=== PATIENT | female | born 1990 | race Caucasian/White ===

== ENCOUNTER 2018-03-06 08:58 | Emergency (ER) | payer OTHER, MEDICAID, SELFPAY ==
--- NOTE | 2018-03-06 09:03 | DI.RAD.S_ITS ---
PROCEDURE: XR KNEE LT 3V INDICATIONS: fall heard a popping TECHNIQUE: 3 views of the knee were acquired. COMPARISON: None. FINDINGS: Bones: No fractures or dislocations. No suspicious bony lesions. No patella subluxation is seen. Soft tissues: No joint effusion. No suspicious soft tissue calcifications. IMPRESSION: No acute left knee fracture or dislocation. Dictated by: William Benson M.D. on 03/06/2018 at 9:55 Approved by: William Benson M.D. on 03/06/2018 at 9:55
[2018-03-06 09:04] VITALS: BP 158/100; PULSE 87; RESP 20; TEMP 36.5; O2SAT 97; BMI 45.7
--- NOTE | 2018-03-06 09:05 | ED.LOWEXIN ---
HPI - Extremity Injury (Lower) General Chief Complaint: Extremity Injury, Lower Stated Complaint: L knee pop, numb and tingling Time Seen by Provider: 03/06/18 09:02 Source: patient and EMS Mode of arrival: EMS History of Present Illness HPI Narrative: Patient is a 27-year-old female who presents with left knee pain. She states she got up in the bathroom she felt her knee give out she fell to the floor she heard a pop before she fell and then again when she fell. She thinks it popped out and popped back in. She has no numbness or tingling. She has no thigh pain no hip pain. She sometimes is sharp shooting pain down to her foot. She is unable to weightbear. MD complaint: knee injury Related Data Previous Rx's Medication Instructions Recorded labetalol 100 mg PO BID #60 tab 07/12/17 norethindrone (contraceptive) 0.35 mg PO QDAY #3 pac 07/12/17 [Ortho Micronor] Allergies Allergy/AdvReac Type Severity Reaction Status Date / Time No Known Drug Allergies Allergy Verified 03/06/18 09:13 Review of Systems Review of Systems GENERAL: Denies chills,fever HEENT: Denies throat pain RESPIRATORY: Denies dyspnea, cough, wheezing CARDIOVASCULAR: Denies chest pain, palpitations GASTROINTESTINAL: Denies nausea, vomiting MUSCULOSKELETAL: See HPI SKIN: No rash, no laceration, no pruritus NEUROLOGIC: Denies weakness, dizziness, headache, numbness 8 point review of systems is negative except for those stated above and HPI PFSH Surgical History Status post delivery (05/10/17) Social History Smoking Status: Never smoker Exam Initial Vital Signs Initial Vital Signs: Vital Signs Temperature 97.7 F 03/06/18 09:04 Pulse Rate 87 03/06/18 09:04 Respiratory Rate 20 03/06/18 09:04 Blood Pressure 158/100 H 03/06/18 09:04 Pulse Oximetry 97 03/06/18 09:04 Const General: cooperative Nutritional Appearance: overweight Orientation: alert, awake and oriented x3 Neck Neck: normal visual inspection and full ROM Chest Chest: normal inspection of the chest and normal palpation of entire chest wall Resp Effort & Inspection: normal respiratory effort and able to speak in complete sentences Cardio Pulses: normal peripheral pulses Skin General: no rashes or lesions noted and elasticity normal Neuro General: alert, awake and oriented x3 Extrem Right lower extremity: hip/thigh Details: normal to inspection; no tenderness, no swelling and ROM abnormal and knee Details: tenderness Location: of the patella and of the medial joint line and knee ligament exam normal Left lower extremity: hip/thigh Details: normal to inspection and normal ROM; no tenderness, no swelling and no ecchymosis Course Orders Ordered: ED Orders 03/06/18 09:03 XR knee LT 3V Stat Vital Signs - 8 hr 03/06/18 09:04 03/06/18 09:10 Temperature 97.7 F Pulse Rate 87 Respiratory Rate 20 Blood Pressure 158/100 H Blood Pressure [Left Arm] 154/94 H Pulse Oximetry 97 MDM - Extremity Injury (Lower) Imaging Data XR left knee: Attestation: I personally reviewed and interpreted this imaging study as follows: My impression: negative Radiologist's impression: PROCEDURE: XR KNEE LT 3V INDICATIONS: fall heard a popping TECHNIQUE: 3 views of the knee were acquired. COMPARISON: None. FINDINGS: Bones: No fractures or dislocations. No suspicious bony lesions. No patella subluxation is seen. Soft tissues: No joint effusion. No suspicious soft tissue calcifications. IMPRESSION: No acute left knee fracture or dislocation. Dictated by: William Benson M.D. on 03/06/2018 at 9:55 Discharge Plan Departure Patient Disposition: Home Clinical Impression: Left knee sprain Instructions: DI for Knee Sprain Activity Restrictions/Additional Instructions: *You have been diagnosed with left knee sprain *What to do: Wear brace while active, elevate, ice as needed if still having pain it in a couple of weeks he may require an MRI by L&I doctor or your PCP *Continue to take medications as directed Motrin 100 mg every 8 hr if needed for pain *Follow up with your primary care provider in 2-3 days *Return to ER if you should have increasing weakness, numbness or any new, worsening or concerning symptoms Prescriptions: No Action labetalol 100 MG tablet 100 mg PO BID Qty: 60 RF: 2 norethindrone (contraceptive) [Ortho Micronor] 0.35 MG tablet 0.35 mg PO QDAY Qty: 3 RF: 3 Stand Alone Forms: Work Release Note
[2018-03-06 09:10] VITALS: BP 154/94
[2018-03-06 10:08] VITALS: BP 147/89; PULSE 77; RESP 18; O2SAT 97
== END 2018-03-06 10:09 | disposition home or self-care (01) ==
PROVIDERS: Emergency Provider Emergency Medicine; PCP Family Medicine
DX: S83.92XA Sprain of unspecified site of left knee, initial encounter (principal); W18.30XA Fall on same level, unspecified, initial encounter
CPT/HCPCS: 73562; 99283

== ENCOUNTER → 2019-11-09 14:12 | Outpatient (CLI) | payer OTHER, SELFPAY ==
[2019-11-10 18:36] LABS: COVID19 Sendout Not Detected (Not Detected)
== END ==
PROVIDERS: PCP Family Medicine; Visit Provider Physician Assistant
DX: Z11.59 Encounter for screening for other viral diseases (principal)
CPT/HCPCS: 87635

== ENCOUNTER → 2020-06-25 17:17 | Outpatient (CLI) | payer OTHER, SELFPAY ==
--- NOTE | 2020-06-25 17:20 | DI.RAD.S_ITS ---
PROCEDURE: XR HAND LT MIN 3V INDICATIONS: Left hand discomfort status post repair TECHNIQUE: 3 views of the hand(s) acquired. COMPARISON: [facility], , HAND 3V LEFT, 05/15/2006, 13:48. FINDINGS: Bones: Plate and screw fixation of the 3rd metacarpal. There is expected alignment. Hardware appears intact. Soft tissues: No suspicious soft tissue calcifications. IMPRESSION: Expected postoperative alignment. Dictated by: Hugo Tucker M.D. on 06/26/2020 at 10:15 Approved by: Hugo Tucker M.D. on 06/26/2020 at 10:29
--- NOTE | 2020-06-25 17:20 | DI.RAD.S_ITS ---
PROCEDURE: XR KNEE LT 3V INDICATIONS: Left knee pain TECHNIQUE: 3 views of the knee were acquired. COMPARISON: [facility], , XR KNEE LT 3V, 03/06/2018, 9:07. FINDINGS: Bones: No fracture. Anatomic alignment. Mild narrowing of the patellofemoral joint space. There is a 2 mm density projecting at the lateral aspect of the patellofemoral joint space raising possibility of small loose body although technically indeterminate. Soft tissues: No joint effusion. No suspicious soft tissue calcifications. IMPRESSION: Mild degenerative changes as above. No definite interval progression since 03/06/18. If the patient's pain or other symptoms persist, consider further evaluation with MRI Dictated by: Hugo Tucker M.D. on 06/26/2020 at 9:33 Approved by: Hugo Tucker M.D. on 06/26/2020 at 9:36
[2020-06-25 18:39] LABS: Add Manual Diff / Slide Review NO; Basophils Absolute Auto 100 /uL (0-100); Basophils Percent Auto 0.5 % (0-2); Eosinophils Absolute Auto 200 /uL (0-450); Eosinophils Percent Auto 1.8 % (2-4); Hematocrit 44.8 % (36-46); Hemoglobin 14.7 g/dL (12.0-16.0); Lymphocytes Absolute Auto 3800 /uL (1100-4500); Lymphocytes Percent Auto 28.9 % (25-40); Mean Corpuscular HGB Conc 32.7 % (30-36); Mean Corpuscular Hemoglobin 27.7 PG (26-34); Mean Corpuscular Volume 84.6 fL (80-100); Monocytes Absolute Auto 600 /uL (0-900); Monocytes Percent Auto 4.9 % (3-14); Neutrophils Absolute Auto 8300 /uL (1500-7000); Neutrophils Percent Auto 63.9 % (50-75); Platelet Count 315 X10^3/uL (150-400); Red Blood Cell Count 5.29 X10^6/uL (4.0-5.2); Red Cell Distribution Width 14.8 % (11.6-14.8)
[2020-06-25 18:52] LABS: Hemoglobin A1C% w Est Avg Glu 5.4 % (4.0-6.0)
[2020-06-25 18:55] LABS: Alanine Aminotransferase 42 IU/L (<35); Albumin 4.6 g/dL (3.5-5.0); Albumin Globulin Ratio 1.4 (1.0-2.8); Alkaline Phosphatase 68 U/L (38-126); Aspartate Aminotransferase 39 IU/L (14-36); Bilirubin Total 0.2 mg/dL (0.2-1.3); Blood Urea Nitrogen 13 mg/dL (7-17); Calcium 9.9 mg/dL (8.4-10.2); Carbon Dioxide 26 mmol/L (22-32); Chloride 103 mmol/L (98-107); Estimated Glomerular Filt Rate > 60.0 mL/min (>60); Globulin 3.3 g/dL (1.7-4.1); Glucose 101 mg/dL (70-100); HEMOLYSIS 19 (0-50); Potassium 3.9 mmol/L (3.4-5.1); Sodium 141 mmol/L (137-145); Total Protein 7.9 g/dL (6.3-8.2)
[2020-06-25 19:27] LABS: TSH w/ Reflex to FT4 1.44 uIU/mL (0.47-4.68)
== END ==
PROVIDERS: PCP Family Medicine; Referring Provider Family Medicine; Visit Provider Family Medicine
DX: E66.9 Obesity, unspecified (principal); M25.562 Pain in left knee; M79.642 Pain in left hand; Z30.9 Encounter for contraceptive management, unspecified
CPT/HCPCS: 36415; 73130; 73562; 80053; 83036; 84443; 85025

== ENCOUNTER → 2020-12-14 10:47 | Outpatient (CLI) | payer OTHER, SELFPAY ==
[2020-12-14 11:55] LABS: Add Manual Diff / Slide Review NO; Basophils Absolute Auto 100 /uL (0-100); Basophils Percent Auto 0.5 % (0-2); Eosinophils Absolute Auto 300 /uL (0-450); Eosinophils Percent Auto 2.7 % (2-4); Hematocrit 44.1 % (36-46); Hemoglobin 14.5 g/dL (12.0-16.0); Lymphocytes Absolute Auto 3000 /uL (1100-4500); Lymphocytes Percent Auto 30.5 % (25-40); Mean Corpuscular HGB Conc 32.8 % (30-36); Mean Corpuscular Hemoglobin 27.3 PG (26-34); Mean Corpuscular Volume 83.3 fL (80-100); Monocytes Absolute Auto 500 /uL (0-900); Monocytes Percent Auto 5.5 % (3-14); Neutrophils Absolute Auto 6100 /uL (1500-7000); Neutrophils Percent Auto 60.8 % (50-75); Platelet Count 279 X10^3/uL (150-400); Red Blood Cell Count 5.29 X10^6/uL (4.0-5.2); Red Cell Distribution Width 14.4 % (11.6-14.8)
[2020-12-14 12:03] LABS: Alanine Aminotransferase 33 IU/L (<35); Albumin 4.4 g/dL (3.5-5.0); Albumin Globulin Ratio 1.6 (1.0-2.8); Alkaline Phosphatase 67 U/L (38-126); Aspartate Aminotransferase 30 IU/L (14-36); BUN Creatinine Ratio 21.1 (6-22); Bilirubin Total 0.4 mg/dL (0.2-1.3); Blood Urea Nitrogen 15 mg/dL (7-17); Calcium 9.6 mg/dL (8.4-10.2); Carbon Dioxide 25 mmol/L (22-32); Chloride 106 mmol/L (98-107); Estimated Glomerular Filt Rate > 60.0 mL/min (>60); Globulin 2.8 g/dL (1.7-4.1); Glucose 92 mg/dL (70-100); HEMOLYSIS < 15 (0-50); Hemoglobin A1C% w Est Avg Glu 5.5 % (4.0-6.0); Potassium 4.4 mmol/L (3.4-5.1); Sodium 138 mmol/L (137-145); Total Protein 7.2 g/dL (6.3-8.2)
== END ==
PROVIDERS: PCP Family Medicine; Referring Provider Family Medicine; Visit Provider Family Medicine
DX: R73.9 Hyperglycemia, unspecified (principal)
CPT/HCPCS: 36415; 80053; 83036; 85025

== ENCOUNTER 2021-03-02 07:04 | Observation (INO) | payer OTHER, SELFPAY ==
[2021-03-02] VITALS (12 sets, daily range): BP systolic 149–184; BP diastolic 79–108; PULSE 85–115; RESP 16–98; TEMP 35.8–37.1; O2SAT 97–99; BMI 49.4
--- NOTE | 2021-03-02 07:42 | DI.CT.S_ITS ---
PROCEDURE: CT KIDNEY URETER BLADDER (KUB) INDICATIONS: Right flank pain. Hematuria. TECHNIQUE: Axial sections were acquired from the lung bases to the pubic symphysis. Coronal and sagittal reformats were performed. For radiation dose reduction, the following was used: automated exposure control, adjustment of mA and/or kV according to patient size. COMPARISON: None. FINDINGS: Image quality: Excellent. Lung bases: Unremarkable. Heart: No significant findings. URINARY: No left nephrolithiasis or hydronephrosis. Mild right renal enlargement. Mild right hydronephrosis. There is a right ureteropelvic junction calculus measuring 10 mm and 690 Hounsfield units. Bladder: Urinary bladder is decompressed. ABDOMEN: Liver: There is a well-circumscribed 32 mm diameter focus of fat density within the right hepatic dome with a thin surrounding calcific rim. Gallbladder: Unremarkable. Biliary ducts: Unremarkable. Pancreas: Unremarkable. Spleen: Unremarkable. Adrenal Glands: Unremarkable. Stomach and Bowel: Stomach, small bowel loops, and colon are unremarkable. Normal appendix Peritoneum: No abnormal intraperitoneal fluid. No free air. Ventral Wall: No hernia. Abdominal Nodes: No enlarged retroperitoneal or mesenteric lymph nodes. Vessels: Aorta and inferior vena cava are normal in size. PELVIS: Pelvic Organs: Unremarkable. Pelvic Nodes: Unremarkable. Miscellaneous: No inguinal hernias are seen. Bones: Unremarkable. IMPRESSION: 1. Right ureteropelvic junction calculus associated with mild hydronephrosis. 2. Normal appendix. 3. Indeterminate fat containing right hepatic lobe mass. Initial further assessment with nonemergent outpatient follow-up liver protocol MRI is recommended. Dictated by: Jose Alberto Calzada M.D. on 03/02/2021 at 7:31 Approved by: Jose Alberto Calzada M.D. on 03/02/2021 at 7:33
[2021-03-02] MEDS: SODIUM CHLORIDE 0.9% 1,000 ML 250 ML IV (07:48)
[2021-03-02] MEDS: ONDANSETRON 4 MG/2 ML INJ IV (07:48)
[2021-03-02] MEDS: KETOROLAC 30 MG/ML VIAL IV (07:48)
[2021-03-02 07:51] LABS: Add Manual Diff / Slide Review NO; Basophils Absolute Auto 100 /uL (0-100); Basophils Percent Auto 0.8 % (0-2); Eosinophils Absolute Auto 300 /uL (0-450); Eosinophils Percent Auto 2.5 % (2-4); Hematocrit 41.6 % (36-46); Lymphocytes Absolute Auto 3600 /uL (1100-4500); Lymphocytes Percent Auto 30.8 % (25-40); Mean Corpuscular HGB Conc 33.7 % (30-36); Mean Corpuscular Hemoglobin 27.1 PG (26-34); Mean Corpuscular Volume 80.6 fL (80-100); Monocytes Absolute Auto 500 /uL (0-900); Monocytes Percent Auto 4.8 % (3-14); Neutrophils Absolute Auto 7100 /uL (1500-7000); Neutrophils Percent Auto 61.1 % (50-75); Platelet Count 343 X10^3/uL (150-400); Red Blood Cell Count 5.16 X10^6/uL (4.0-5.2); Red Cell Distribution Width 14.6 % (11.6-14.8); White Blood Cell Count 11.6 X10^3/uL (4.5-11.0)
--- NOTE | 2021-03-02 08:00 | ED.FEMALEGU ---
HPI - Female Genitourinary General Chief complaint: Urogenital-Female Stated complaint: Sharp pain in lower rt side of back Time Seen by Provider: 03/02/21 07:23 Source: patient Mode of arrival: Ambulatory History of Present Illness HPI Narrative: The patient developed mild dysuria about 1 week ago. She developed cloudy urine. She utilized a telemedicine service and was prescribed Keflex for UTI for 5 days Symptoms resolved. She has finished the antibiotic. This morning she woke with sharp pain in the right mid back. She explains that the pain feels deep in does not radiate. She has no pain with motion in her back. She has no recent injury to the back. Pain does not radiate to the abdomen or pelvis. She experiences no dysuria or hematuria. She has no fever or chills. She has no nausea, vomiting or diarrhea. She is finishing her menstrual cycle, is unlikely. She has no vaginal discharge. She has no history of kidney stones. She recently had cough and congestion, all respiratory symptoms have cleared. She denies fever or chills. Related Data Previous Rx's Medication Instructions Recorded naproxen 500 mg tablet 500 mg PO BID #60 tab 06/25/20 norgestimate-ethinyl estradiol 1 tab PO DAILY #84 tab 11/06/20 0.18 mg/0.215mg/0.25mg-35 mcg(28)tablet (Ortho Tri-Cyclen (28)) hydrocodone 5 mg-acetaminophen 325 1 tab PO Q4-6H PRN #20 tab 03/02/21 mg tablet ondansetron 4 mg disintegrating 4 mg PO Q4-6H PRN #20 tab 03/02/21 tablet Allergies Allergy/AdvReac Type Severity Reaction Status Date / Time No Known Drug Allergies Allergy Verified 01/06/21 16:53 Review of Systems Review of Systems ROS Unobtainable: All systems reviewed & are unremarkable except as noted in HPI and below Patient History Medical History (Updated 03/02/21 @ 11:54 by Olu Foster MD) Chicken pox (~1998) Contraceptive management Gastroesophageal reflux disease GERD (gastroesophageal reflux disease) Human papilloma virus (~2013) Hyperglycemia Left hand pain Left knee pain Leukocytosis Leukocytosis Obesity Ovarian cyst (~2012) Renal colic on right side Renal colic on right side Urinary tract infection Surgical History Anesthesia History of hand surgery (~2006) S/P foot surgery, left (~2003) S/P removal of left ovary (~2012) Status post delivery (05/10/17) Status post primary low transverse section Family History Father Hypertension Mother Hypertension Grandfather Cancer Grandfather Cancer Grandmother Cancer alcohol intake frequency: 0-2 drinks per day Substance Use Type: does not use Exam Initial Vital Signs Initial Vital Signs: Vital Signs Temperature 98.1 F 03/02/21 07:17 Pulse Rate 103 H 03/02/21 07:17 Respiratory Rate 18 03/02/21 07:17 Blood Pressure 184/108 H 03/02/21 07:17 Pulse Oximetry 99 03/02/21 07:17 Const General: cooperative and other (She appears uncomfortable but not toxic.) HENMT Head: normocephalic and atraumatic Resp Auscultation: clear to auscultation bilaterally Cardio Rate: regular rate Rhythm: regular rhythm Heart Sounds: S1 normal, S2 normal, no click and no murmurs GI Inspection: obesity Palpation: soft, No mass and No tender Back/Spine/Pelvis Back: CVA tenderness right Skin General: no rashes or lesions noted Neuro General: patient alert, patient awake, patient oriented x3 and no focal motor deficits Extrem General: normal to inspection Psych Mental Status: mental status grossly normal Course Course Course Narrative: The patient initially received Toradol and Zofran for pain and nausea. She has an obstructing 10 mm right UPJ calculus. She was also given Dilaudid. Dr. Foster, urology, has been consulted, he will see hurt today to place a right ureter stent. Orders Ordered: ED Orders 03/02/21 07:41 Complete Blood Count AUTO DIFF Stat Comprehensive Metabolic Panel Stat 03/02/21 07:42 CT kidney ureter bladder (KUB) Stat Hydrocodone Bitart/Acetaminophen (Hydrocodone/Acet 5/325 Tablet) 1 tab PO PACUNOW PRN PRN Reason: Mild or moderate pain Fentanyl (Fentanyl 100 Mcg/2 Ml Inj) 0 mcg IV Q5M PRN PRN Reason: Pain, Moderate (4-6) Hydromorphone HCl (Hydromorphone 2 Mg Inj) 0 mg IV Q5M PRN PRN Reason: Pain, Severe (7-10) Sodium Chloride (Normal Saline 0.9%) 1,000 mls @ 250 mls/hr IV CONT KARRIE Last Infusion: 03/02/21 09:22 Dose: 0 mls/hr Documented by: Admin: 03/02/21 07:48 Dose: 250 mls/hr Documented by: CHIARA Lactated Ringer's (Lactated Ringers) 1,000 mls @ 42 mls/hr IV CONT KARRIE Lactated Ringer's (Lactated Ringers) 500 mls @ 25 mls/hr IV CONT KARRIE Ciprofloxacin (Cipro) 400 mg in 200 mls @ 200 mls/hr IV NOW ONE Stop: 03/02/21 12:59 Lorazepam (Lorazepam 2 Mg/Ml Inj) 0.5 mg IV NOW PRN PRN Reason: Anxiety Metoclopramide HCl (Metoclopramide 10 Mg/2 Ml Inj) 10 mg IV NOW PRN PRN Reason: Nausea And Vomiting Ondansetron HCl (Ondansetron 4 Mg/2 Ml Inj) 4 mg IV NOW PRN PRN Reason: Nausea And Vomiting Discontinued Medications Hydromorphone HCl (Hydromorphone 1 Mg Inj) 1 mg IV NOW ONE Stop: 03/02/21 09:13 Last Admin: 03/02/21 09:17 Dose: 1 mg Documented by: CHIARA Ketorolac Tromethamine (Ketorolac 30 Mg/Ml Vial) 30 mg IV NOW ONE Stop: 03/02/21 07:43 Last Admin: 03/02/21 07:48 Dose: 30 mg Documented by: CHIARA Ondansetron HCl (Ondansetron 4 Mg/2 Ml Inj) 4 mg IV NOW ONE Stop: 03/02/21 07:41 Last Admin: 03/02/21 07:48 Dose: 4 mg Documented by: CHIARA Vital Signs Vital signs: Vital Signs - 8 hr 03/02/21 07:17 Temperature 98.1 F Pulse Rate 103 H Respiratory Rate 18 Blood Pressure 184/108 H Pulse Oximetry 99 MDM - Female Genitourinary Lab Data Result diagrams: 03/02/21 07:41 03/02/21 07:41 Labs: Lab Results 03/02/21 03/02/21 03/02/21 Range/Units 07:41 07:41 10:50 WBC 11.6 H (4.5-11.0) X10^3/uL RBC 5.16 (4.0-5.2) X10^6/uL Hgb 14.0 (12.0-16.0) g/dL Hct 41.6 (36-46) % MCV 80.6 (80-100) fL MCH 27.1 (26-34) PG MCHC 33.7 (30-36) % RDW 14.6 (11.6-14.8) % Plt Count 343 (150-400) X10^3/uL Neut % (Auto) 61.1 (50-75) % Lymph % (Auto) 30.8 (25-40) % Antelope % (Auto) 4.8 (3-14) % Eos % (Auto) 2.5 (2-4) % Baso % (Auto) 0.8 (0-2) % Neut # (Auto) 7100 H (0276-1225) /uL Lymph # (Auto) 3600 (7820-4557) /uL Antelope # (Auto) 500 (0-900) /uL Eos # (Auto) 300 (0-450) /uL Baso # (Auto) 100 (0-100) /uL Sodium 141 (137-145) mmol/L Potassium 4.0 (3.4-5.1) mmol/L Chloride 106 (98-107) mmol/L Carbon Dioxide 28 (22-32) mmol/L BUN 13 (7-17) mg/dL Creatinine 0.87 (0.52-1.04) mg/dL Estimated GFR > 60.0 (>60) mL/min BUN/Creatinine Ratio 14.9 (6-22) Glucose 109 H (70-100) mg/dL Calcium 9.8 (8.4-10.2) mg/dL Total Bilirubin 0.5 (0.2-1.3) mg/dL AST 34 (14-36) IU/L ALT 38 H (<35) IU/L Alkaline Phosphatase 66 (38-126) U/L Total Protein 7.7 (6.3-8.2) g/dL Albumin 4.5 (3.5-5.0) g/dL Globulin 3.2 (1.7-4.1) g/dL Albumin/Globulin Ratio 1.4 (1.0-2.8) SARS-CoV-2 (PCR) Negative (Negative) Point of Care Testing Test Results Negative Urine Dip Bedside Urine Glucose Negative Bedside Urine Bilirubin - Negative Bedside Urine Ketone - Negative Urine Specific [place] 1.030 Bedside Urine Occult Blood +++ Bedside Urine pH 6.0 Bedside Urine Protein +/- 15 Bedside Urine Urobilinogen 0.2 Bedside Urine Nitrite - Negative Bedside Urine Leukocytes - Negative Esterase Imaging Data CT scan - abdomen/pelvis: Radiologist's Impression: 10 mm right UPJ stone with associated hydronephrosis. Discharge Plan Departure Patient Disposition: Admitted to Surgery Clinical Impression: Renal calculus, right Admit Date/Time: 03/02/21 10:50 Admit Provider: Olu Foster
[2021-03-02 08:06] LABS: Alanine Aminotransferase 38 IU/L (<35); Albumin 4.5 g/dL (3.5-5.0); Albumin Globulin Ratio 1.4 (1.0-2.8); Alkaline Phosphatase 66 U/L (38-126); Aspartate Aminotransferase 34 IU/L (14-36); BUN Creatinine Ratio 14.9 (6-22); Bilirubin Total 0.5 mg/dL (0.2-1.3); Blood Urea Nitrogen 13 mg/dL (7-17); Calcium 9.8 mg/dL (8.4-10.2); Carbon Dioxide 28 mmol/L (22-32); Chloride 106 mmol/L (98-107); Estimated Glomerular Filt Rate > 60.0 mL/min (>60); Globulin 3.2 g/dL (1.7-4.1); Glucose 109 mg/dL (70-100); HEMOLYSIS < 15 (0-50); Sodium 141 mmol/L (137-145); Total Protein 7.7 g/dL (6.3-8.2)
[2021-03-02] MEDS: HYDROMORPHONE 1 MG INJ IV (09:17)
[2021-03-02 11:35] LABS: COVID19 -Nasal RAPID Negative (Negative)
--- NOTE | 2021-03-02 11:46 | P.CONS_ITS ---
History of Present Illness Consult details Date Patient Seen: 03/02/21 Time Patient Seen: 11:46 Chief complaint: Sharp pain in lower rt side of back Reason for consult: Right 10 mm ureteral calculus unremitting colic infected urine Requesting provider: Alber Andres Narrative: This 30-year-old female presented to the emergency department with complaint of sharp right-sided flank pain. Workup has revealed a obstructing 10 mm proximal ureteral calculus. Patient has been poorly responsive to pain control. Is currently on antibiotics for a urinary tract infection. And Dr. Andres requested that we evaluate and assist. The patient has never had a stone before by her report. Father has a history of kidney stones. The pain came on suddenly is sharp in consistent with right ureteral colic she denies fever, chills, nausea, vomiting, sign or symptom of systemic infectious illness. Patient denies gross hematuria. Patient is not , and COVID negative today The infection, size of the stone, unremitting colic the best course of action would be cystoscopy with right stent placement. The procedure, risks, alternatives discussed the patient and her mother. And she wishes to proceed. Risks to include but not limited to bleeding, infection, injury to surrounding structures, need for future procedures, stent discomfort. Patient will be taken to the operating room stent placed and then likely discharged home. Meds Home Medications and Allergies Home Medications Medication Instructions Recorded Confirmed Type naproxen 500 mg tablet 500 mg PO BID #60 tab 06/25/20 01/06/21 Rx norgestimate-ethinyl estradiol 1 tab PO DAILY #84 tab 11/06/20 01/06/21 Rx 0.18 mg/0.215mg/0.25mg-35 mcg(28)tablet (Ortho Tri-Cyclen (28)) hydrocodone 5 mg-acetaminophen 325 1 tab PO Q4-6H PRN #20 tab 03/02/21 Rx mg tablet ondansetron 4 mg disintegrating 4 mg PO Q4-6H PRN #20 tab 03/02/21 Rx tablet Allergies Allergy/AdvReac Type Severity Reaction Status Date / Time No Known Drug Allergies Allergy Verified 01/06/21 16:53 Review of Systems Review of Systems ROS: Yes All systems reviewed with the patient and are negative except as otherwise documented (Problem list) Exam Vital Signs (past 8 hours): - 03/02/21 07:17 03/02/21 11:03 03/02/21 11:04 Temperature 98.1 F 98.7 F Pulse Rate 103 H 85 88 Respiratory Rate 18 Blood Pressure 184/108 H 165/103 H Pulse Oximetry 99 98 97 Oxygen Delivery Method Room Air Narrative Exam Narrative: General: This is an awake, alert, oriented obese female appearing in minimal to moderate distress. Lungs: Clear full and equal Cardiovascular exam: Regular rate and rhythm without murmur Abdominal exam, obese, nontender Back: Right-sided CVA tenderness to percussion. Neurologic exam: Grossly intact Objective Labs Result Diagrams: 03/02/21 07:41 03/02/21 07:41 Labs: Laboratory Results - last 24 hr 03/02/21 03/02/21 03/02/21 07:41 07:41 10:50 WBC 11.6 H RBC 5.16 Hgb 14.0 Hct 41.6 MCV 80.6 MCH 27.1 MCHC 33.7 RDW 14.6 Plt Count 343 Neut % (Auto) 61.1 Lymph % (Auto) 30.8 Callahan % (Auto) 4.8 Eos % (Auto) 2.5 Baso % (Auto) 0.8 Neut # (Auto) 7100 H Lymph # (Auto) 3600 [place]ahan # (Auto) 500 Eos # (Auto) 300 Baso # (Auto) 100 Sodium 141 Potassium 4.0 Chloride 106 Carbon Dioxide 28 BUN 13 Creatinine 0.87 Estimated GFR > 60.0 BUN/Creatinine Ratio 14.9 Glucose 109 H Calcium 9.8 Total Bilirubin 0.5 AST 34 ALT 38 H Alkaline Phosphatase 66 Total Protein 7.7 Albumin 4.5 Globulin 3.2 Albumin/Globulin Ratio 1.4 SARS-CoV-2 (PCR) Negative [facility] Medical History (Updated 03/02/21 @ 11:54 by Olu Foster MD) Chicken pox (~1998) Contraceptive management Gastroesophageal reflux disease GERD (gastroesophageal reflux disease) Human papilloma virus (~2013) Hyperglycemia Left hand pain Left knee pain Leukocytosis Leukocytosis Obesity Ovarian cyst (~2012) Renal colic on right side Renal colic on right side Urinary tract infection Surgical History Anesthesia History of hand surgery (~2006) S/P foot surgery, left (~2003) S/P removal of left ovary (~2012) Status post delivery (05/10/17) Status post primary low transverse section Family History Father Hypertension Mother Hypertension Grandfather Cancer Grandfather Cancer Grandmother Cancer Tobacco & Substance Use Smoking Status: Former smoker alcohol intake: current (social drinker) substance use type: does not use and marijuana (former ) Assessment & Plan Assessment and plan (1) Renal calculus, right: Status: Acute (2) Renal colic on right side: Status: Acute (3) Urinary tract infection: Status: Acute Plan Assessment and plan: Right 10 mm obstructing ureteral calculus with unremitting colic and urinary tract infection. Patient currently is afebrile and not septic. But is failing to respond to pain medications. Plan would be for cystoscopy with right stent placement and then future treatment of her stone. COVID-19 COVID-19 status: Negative Result date/Date tested (Pos, Neg/Pending): 03/02/21 Time Spent With Patient Time with patient: less than 30 minutes Critical Care time: I spent a total of [] minutes of critical care time on this patient's care today; this time is exclusive of procedural time.
--- NOTE | 2021-03-02 11:55 | PM.PREOP ---
Pre-operative Note COVID-19 COVID-19 status: Negative Result date/Date tested (Pos, Neg/Pending): 03/02/21 Interval Note History & Physical reviewed/Exam performed by Physician: Yes Changes to H&P: No
--- NOTE | 2021-03-02 11:57 | SUR.OPER ---
Lithotomy on padded OR bed, head on pillow, arms secured on padded arm boards at <90 degrees abduction. Legs secured in padded yellow fins stirrups.
[2021-03-02] MEDS: LACTATED RINGERS 1,000 ML 42 ML IV (12:10)
[2021-03-02] MEDS: CIPROFLOXACIN 400 MG/200 ML PIGGYBACK 200 MG IV (12:20)
--- NOTE | 2021-03-02 12:45 | P.OP_ITS ---
Procedure & Clinicians Procedure: Cystoscopy with right ureteral stent placement Same procedure as scheduled: Yes Indications: This 30-year-old female presented to the emergency department with complaint of right flank pain urinary tract infection. She was found to have an obstructing 10 mm proximal ureteral stone and was unresponsive to attempt to control her pain. She presents this time for cystoscopy with right stent placement. Surgeon: Olu Foster Click Yes if Unassisted: Yes Anesthesia Type: General Operative Notes Findings: External genitalia normal, urethral meatus normal, urethra normal along its length, ureteral orifices in normal position with clear efflux bilaterally. Bladder mucosa is normal. The stone is noted via fluoroscopy to be in the proximal ureter. No other abnormalities noted the stent was left in good position in the right collecting system via fluoroscopy in the upper collecting system and under direct vision in the bladder. The string was removed. Closure Type: not applicable Specimen(s): none sent Applied: other (Seven Bel[place]ian multi length stent left in the right collecting system with no string) Estimated Blood Loss (mL): 0 Blood products transfused: none Procedure in detail: After informed consent was obtained the patient was identified and brought to the operating room. She was placed in the supine position on the operating room table and anesthesia was induced and maintained. After anesthetic induction and maintenance the placed was in transition to the lithotomy position. The patient was then prepped, draped and prepared for transurethral procedure. After prepping, draping and ensuring an adequate level of anesthesia a 21 Bel[place]ian cystoscope was passed through the urethra into the bladder where cystoscopy was performed. The right ureteral orifice once again identified and a hybrid guidewire passed up and into the collecting system under fluoroscopic visualization. The stent was then passed over the wire in a coaxial fashion up and in the collecting system. The upper portion was position via fluoroscopy. The wire and pusher were removed. The stent remained in good position. The string was then backed out of the scope and the scope reinserted into the bladder grasping forceps was then inserted the stent was grasped and the nylon harness removed. The position of the stent was once again checked and was found to be in good position both in the renal pelvis and bladder. Bladder was drained scope was removed and patient was awakened and taken to the pos tanesthesia care unit having tolerated the procedure well. There were no complications. The patient will be discharged home to follow-up in my office in approximately 7 to 10 days. Complications: none Post-operative Condition: other (Improved) Disposition: PACU Plan for aftercare: Patient will be discharged home to follow up my office in 7-10 days.
[2021-03-02] MEDS: LACTATED RINGERS 500 ML 25 ML IV (13:34)
== END 2021-03-02 13:50 | disposition home or self-care (01) ==
LOC: ED 10:53 → AC 10:56
PROVIDERS: Admitting Provider Urology; Emergency Provider Emergency Medicine; PCP Family Medicine; Referring Provider Emergency Medicine; Visit Provider Urology
PROC: (CPT 52332; principal; 2021-03-02 12:00)
DX: N39.0 Urinary tract infection, site not specified (principal); M54.89 Other dorsalgia; N20.1 Calculus of ureter; Z20.822 Contact with and (suspected) exposure to COVID-19
CPT/HCPCS: 52332; 36415; 74176; 76000; 80053; 81003; 81025; 85025; 87635; 96361; 96374; 96375; 99218; 99284; C9803; G0378; J0744; J1100; J1170; J1885; J2250; J2405; J2704; J3010

== ENCOUNTER → 2021-03-10 09:01 | Outpatient (CLI) | payer OTHER, SELFPAY ==
--- NOTE | 2021-03-10 09:03 | DI.RAD.S_ITS ---
PROCEDURE: XR KUB INDICATIONS: Kidney stone TECHNIQUE: One view of the abdomen acquired. COMPARISON: [facility], CT, CT KIDNEY URETER BLADDER (KUB), 03/02/2021, 7:58. FINDINGS: Surgical changes and devices: There is a right ureteral stent. A 9 mm stone is suspected in the right UPJ area adjacent to the proximal ureteral stent loop. Bowel: Bowel gas pattern is normal. Soft tissues: No suspicious abdominal calcifications. Visualized solid organ contours appear normal in size. Bones: No suspicious bony lesions. IMPRESSION: 1. Right ureteral stent in place. 2. A 9 mm stone is suspected in the right UPJ. Dictated by: Robert Murrieta M.D. on 03/10/2021 at 10:21 Approved by: Robert Murrieta M.D. on 03/10/2021 at 10:23
== END ==
PROVIDERS: PCP Family Medicine; Referring Provider Urology; Visit Provider Urology
DX: N20.1 Calculus of ureter (principal); Z96.0 Presence of urogenital implants
CPT/HCPCS: 74018

== ENCOUNTER → 2021-03-11 09:05 | Outpatient (CLI) | payer OTHER, SELFPAY | PROVIDERS: PCP Family Medicine; Visit Provider Urology | DX: N30.01 Acute cystitis with hematuria (principal); N20.0 Calculus of kidney; N23 Unspecified renal colic; D72.829 Elevated white blood cell count, unspecified | CPT/HCPCS: 81002; 87086 ==

== ENCOUNTER → 2021-03-28 09:13 | Outpatient (CLI) | payer OTHER, SELFPAY | PROVIDERS: PCP Family Medicine; Visit Provider Urology | DX: N30.01 Acute cystitis with hematuria (principal); N20.0 Calculus of kidney | CPT/HCPCS: 81002; 87077; 87086; 87186 ==

== ENCOUNTER → 2021-04-01 09:05 | Outpatient (CLI) | payer OTHER, SELFPAY ==
[2021-04-01 10:04] LABS: COVID19 -Nasal RAPID Negative (Negative)
== END ==
PROVIDERS: PCP Family Medicine; Referring Provider Urology; Visit Provider Urology
DX: Z20.822 Contact with and (suspected) exposure to COVID-19 (principal)
CPT/HCPCS: 87635; C9803

== ENCOUNTER → 2021-04-09 09:14 | Outpatient (CLI) | payer OTHER, SELFPAY | PROVIDERS: PCP Family Medicine; Visit Provider Urology | DX: R30.0 Dysuria (principal); N20.0 Calculus of kidney; B37.3 Candidiasis of vulva and vagina; Z96.0 Presence of urogenital implants; N23 Unspecified renal colic; Z68.42 Body mass index [BMI] 45.0-49.9, adult | CPT/HCPCS: 81002; 87077; 87086; 87185; 87186 ==

== ENCOUNTER → 2021-04-15 15:25 | Outpatient (CLI) | payer OTHER, SELFPAY ==
[2021-04-15 16:41] LABS: COVID19 -Nasal RAPID Negative (Negative)
== END ==
PROVIDERS: PCP Family Medicine; Visit Provider Urology
DX: Z20.822 Contact with and (suspected) exposure to COVID-19 (principal)
CPT/HCPCS: 87635; C9803

== ENCOUNTER 2021-04-18 10:55 | Day surgery (SDC) | payer OTHER, SELFPAY ==
[2021-04-01 14:59] VITALS: BMI 49.4
[2021-04-18] VITALS (7 sets, daily range): BP systolic 134–163; BP diastolic 82–103; PULSE 75–95; RESP 14–18; TEMP 36.2–36.9; O2SAT 96–99; BMI 49.4
--- NOTE | 2021-04-18 11:28 | PM.PREOP ---
Pre-operative Note COVID-19 COVID-19 status: Negative Result date/Date tested (Pos, Neg/Pending): 04/15/21 Criteria for continued procedure: Deterioration of the patient's condition or overall health, Delay expected to result in less-positive ultimate med/surg outcome and Non-surgical alternatives not available or appropriate per current SOC Interval Note History & Physical reviewed/Exam performed by Physician: Yes Changes to H&P: No
[2021-04-18] MEDS: LACTATED RINGERS 1,000 ML 42 ML IV (11:42)
--- NOTE | 2021-04-18 12:06 | SUR.OPER ---
Supine on padded OR bed, head on pillow, arms padded and tucked at sides, legs uncrossed, safety belt at thigh, tape over blanket over lower legs .
[2021-04-18] MEDS: CEFAZOLIN 2 GM/20 ML SYRINGE IV (12:22)
--- NOTE | 2021-04-18 12:30 | SUR.OPER ---
Supine on padded ESWL table, head on pillow, arms at sides at <90 degrees abduction, gel pads under bilateral arms and rolled towel under patients wrists, legs uncrossed, gel pad placed under bilateral heels.
--- NOTE | 2021-04-18 13:02 | P.OP_ITS ---
Procedure & Clinicians Procedure: Right extracorporeal shockwave lithotripsy Same procedure as scheduled: Yes Surgeon: Olu Foster Click Yes if Unassisted: Yes Anesthesia Type: General Operative Notes Findings: Stone is noted in the right renal pelvis stent on the right side is noted to be in good position. The stone at a 1000 shocks appeared to be well fragmented and the procedure was thus stopped at that point. No other abnormalities were noted. Closure Type: not applicable Specimen(s): none sent Prosthetic devices, grafts, tissues, transplants, or devices: None Estimated Blood Loss (mL): 0 Procedure in detail: After informed consent was obtained, the patient was identified and brought to the operating room. She was placed in a supine position on Lithotripter and anesthesia was induced and maintained. After ensuring an adequate level of anesthesia the patient was positioned and the stone targeted via the fluoroscopic targeting system. With the stone appropriately centered and time- out having taken place shock waves were delivered to the stone for total of 1000. At 500 shocks the shockwave head was brought out and there appeared to be 8 perhaps some fine dust that remained. The patient then received 500 more shocks to the stone the shockwave head was rotated out the stone appeared to be completely fragmented. At this point the patient was awakened and taken to the postanesthesia care unit having tolerated the procedure well the patient will follow-up in my office had approximately 10 days she is to strain her urine and save any fragments that she catches bring them to the office for follow-up. There were no complications. Post-operative Condition: stable Disposition: PACU Plan for aftercare: Patient is to strain her urine save any fragments patient to follow up my office in approximately 10 days with KUB.
--- NOTE | 2021-04-18 13:38 | SUR.PHASEII ---
pt given discharge instructions. Pt instructed how to strain her urine and how to save her emily stones if she has any. Pt denies pain and drank some gingerale prior to discharge. pt states she understands discharge instructions and has no questions regarding discharge. Gait is steady and pt to be discharged home with her mom.
== END 2021-04-18 13:44 | disposition home or self-care (01) ==
PROVIDERS: PCP Family Medicine; Referring Provider Urology; Visit Provider Urology
PROC: (CPT 50590; principal; 2021-04-18 12:00)
DX: N20.0 Calculus of kidney (principal); B37.3 Candidiasis of vulva and vagina; Z87.440 Personal history of urinary (tract) infections; Z96.0 Presence of urogenital implants
CPT/HCPCS: 50590; J0690; J1100; J2250; J2405; J2704; J3010

== ENCOUNTER 2021-04-21 10:30 | Emergency (ER) | payer OTHER, SELFPAY ==
[2021-04-21 11:06] VITALS: BP 157/94; PULSE 107; RESP 24; TEMP 36.7; O2SAT 100; BMI 49.5
[2021-04-21] MEDS: ONDANSETRON 4 MG/2 ML INJ IV (11:22)
[2021-04-21] MEDS: SODIUM CHLORIDE 0.9% 1,000 ML 1000 ML IV (11:22)
[2021-04-21 11:35] LABS: Add Manual Diff / Slide Review NO; Basophils Absolute Auto 100 /uL (0-100); Basophils Percent Auto 0.7 % (0-2); Eosinophils Absolute Auto 100 /uL (0-450); Eosinophils Percent Auto 0.4 % (2-4); Hematocrit 37.5 % (36-46); Hemoglobin 12.5 g/dL (12.0-16.0); Lymphocytes Absolute Auto 2200 /uL (1100-4500); Lymphocytes Percent Auto 17.1 % (25-40); Mean Corpuscular HGB Conc 33.3 % (30-36); Mean Corpuscular Hemoglobin 26.5 PG (26-34); Mean Corpuscular Volume 79.5 fL (80-100); Monocytes Absolute Auto 700 /uL (0-900); Monocytes Percent Auto 5.9 % (3-14); Neutrophils Absolute Auto 9600 /uL (1500-7000); Neutrophils Percent Auto 75.9 % (50-75); Platelet Count 245 X10^3/uL (150-400); Red Blood Cell Count 4.72 X10^6/uL (4.0-5.2); Red Cell Distribution Width 15.2 % (11.6-14.8); White Blood Cell Count 12.6 X10^3/uL (4.5-11.0)
[2021-04-21 11:45] LABS: Lactate (Lactic Acid) 1.6 mmol/L (0.7-2.1)
[2021-04-21 11:46] LABS: Alanine Aminotransferase 23 IU/L (<35); Albumin 4.1 g/dL (3.5-5.0); Albumin Globulin Ratio 1.3 (1.0-2.8); Alkaline Phosphatase 49 U/L (38-126); Aspartate Aminotransferase 21 IU/L (14-36); BUN Creatinine Ratio 12.7 (6-22); Bilirubin Total 0.7 mg/dL (0.2-1.3); Blood Urea Nitrogen 10 mg/dL (7-17); Calcium 8.9 mg/dL (8.4-10.2); Carbon Dioxide 28 mmol/L (22-32); Chloride 102 mmol/L (98-107); Estimated Glomerular Filt Rate > 60.0 mL/min (>60); Globulin 3.2 g/dL (1.7-4.1); Glucose 118 mg/dL (70-100); HEMOLYSIS 15 (0-50); Lipase 90 U/L (23-300); Potassium 3.3 mmol/L (3.4-5.1); Sodium 134 mmol/L (137-145); Total Protein 7.3 g/dL (6.3-8.2)
[2021-04-21 12:03] LABS: Procalcitonin 0.07 ng/mL (<0.5)
--- NOTE | 2021-04-21 12:31 | DI.CT.S_ITS ---
PROCEDURE: CT ABDOMEN PELVIS W CON INDICATIONS: ?PYELO; ? KIDNEY stone; check stent placement TECHNIQUE: After the administration of intravenous contrast, axial sections acquired from the lung bases to the pubic symphysis. Coronal and sagittal reformats were performed. For radiation dose reduction, the following was used: automated exposure control, adjustment of mA and/or kV according to patient size. COMPARISON: [facility], CT, CT KIDNEY URETER BLADDER (KUB), 03/02/2021, 7:58. FINDINGS: Image quality: Excellent. Lung bases: Unremarkable. Heart: No significant findings. ABDOMEN: Liver: Stable circumscribed oval fat density lesion with a thin peripheral calcified rim when compared to the prior CT from 03/02/2021. There may be a thin tract extending to the superior liver surface on coronal images. The liver is diffusely hypoattenuating, consistent with fatty infiltration. The liver is mildly enlarged, measuring 20.3 cm in craniocaudal extent. Gallbladder: Unremarkable. Biliary ducts: Unremarkable. Pancreas: Unremarkable. Spleen: Unremarkable. Adrenal Glands: Unremarkable. Kidneys and Ureters: A right ureteral stent is present. There is calcific density material within the right lower pole renal calices. The previously seen ureteral calculus is no longer seen. Mild prominence of the right renal pelvis and calices is seen. There is mild right-sided perinephric fat stranding. There is mild heterogeneity of the right renal cortical enhancement. The left kidney enhances normally. No left-sided hydronephrosis or hydroureter. Stomach and Bowel: Stomach, small bowel loops, and colon are unremarkable. Peritoneum: No abnormal intraperitoneal fluid. No free air. Ventral Wall: No hernias. Abdominal Nodes: No retroperitoneal or mesenteric adenopathy by size criteria. Vessels: Aorta and inferior vena cava are normal in size. PELVIS: Pelvic Organs: Unremarkable. Bladder: Unremarkable. Pelvic Nodes: No enlarged lymph nodes. Miscellaneous: No hernias are seen. Bones: There is bilateral spondylolysis of L5 without significant spondylolisthesis. IMPRESSION: 1. Right-sided ureteral stent is seen in expected position. Mildly heterogeneous enhancement of the right kidney with mild perinephric fat stranding is suspicious for pyelonephritis. 2. Previously seen right ureteral calculus is no longer visualized. Calcific material within the right lower pole calices may represent a branching calculus or calcified debris. 3. Mild hepatomegaly and diffuse hepatic steatosis. 4. Stable nonspecific circumscribed fat containing lesion in the superior right hepatic lobe. Dictated by: Get Masterson M.D. on 04/21/2021 at 12:39 Approved by: Get Masterson M.D. on 04/21/2021 at 12:52
--- NOTE | 2021-04-21 12:31 | ED.FEVER ---
HPI - Fever <Lulu Guy PA-C - Last Filed: 04/21/21 21:26> General Chief Complaint: Fever Stated Complaint: Fever, back pain post kidney stone surgery Time Seen by Provider: 04/21/21 12:01 Source: patient Mode of arrival: Ambulatory History of Present Illness HPI Narrative: 30-year-old female presents to the ED with 2 days of fever, chills, nausea, flank pain. Patient was diagnosed with a obstructing right-sided UPJ kidney stone in February 2021, following which a stent was placed. Patient had lithotripsy performed on April 18, 2021. Patient states she felt well for the next 2 days, but starting yesterday experienced fever, chills, nausea, right-sided flank pain. Patient has had repeated UTIs since February, treated with Bactrim, Macrobid. As of yesterday patient was 5 days into a 10 day course of Macrobid, stop taking the Macrobid starting yesterday. Patient called her urologist Dr. Foster this morning, spoke with Dr. Frank who was covering for him, who called in ciprofloxacin. Dr. Frank also advised patient to go to the ED for further imaging to confirm stent placement and/or other complications. Patient denies chest pain, shortness of breath, abdominal pain, vomiting, lightheadedness, syncope. Patient denies any urinary symptoms. Related Data Home Medications Medication Instructions Recorded Confirmed Bacillus coagulans 400 million cell PO 04/09/21 04/09/21 cell chewable tablet (Digestive Advantage Probiotics-Prebiotic) nitrofurantoin macrocrystal 100 mg 100 mg PO BID 04/21/21 04/21/21 capsule Allergies Allergy/AdvReac Type Severity Reaction Status Date / Time No Known Drug Allergies Allergy Verified 04/09/21 09:23 Review of Systems <Lulu Guy PA-C - Last Filed: 04/21/21 21:26> Review of Systems ROS Unobtainable: All systems reviewed & are unremarkable except as noted in HPI and below Constitutional Constitutional: Reports chills, Reports fatigue, Reports fever(s), Denies frequent falls, Denies lethargy and Denies weakness Eyes Eyes: Denies change in vision, Denies eye discharge, Denies irritation and Denies loss of vision ENT Ears, Nose, Mouth, and Throat: Denies change in voice, Denies dizziness, Denies neck pain, Denies sore throat and Denies throat swelling Cardiovascular Cardiovascular: Denies chest pain, Denies irregular heart rhythm, Denies lightheadedness, Denies palpitations, Denies dyspnea, Denies dyspnea on exertion and Denies orthopnea Respiratory Respiratory: Denies cough, Denies dyspnea, Denies dyspnea on exertion and Denies wheezing Gastrointestinal Gastrointestinal: Denies abdominal pain, Denies change in bowel habits, Denies diarrhea, Reports nausea and Denies vomiting Genitourinary Genitourinary: Denies hematuria, Reports flank pain, Denies urinary incontinence and Denies urinary urgency Comments: Right-sided flank pain Musculoskeletal Musculoskeletal: Denies back pain, Denies muscle weakness, Denies neck pain, Denies numbness and Denies tingling Integumentary/Breasts Skin/Breast: Denies pruritus, Denies erythema, Denies rash and Denies wounds Neurologic Neurologic: Denies behavioral changes, Denies confusion, Denies dizziness, Denies frequent falls, Denies loss of vision, Denies numbness, Denies tingling and Denies weakness Psychiatric Psychiatric: Denies anxiety, Denies behavioral changes, Denies confusion, Denies depression, Denies homicidal ideation and Denies suicidal ideation Endocrine Endocrine: Reports fatigue, Denies flushing and Denies palpitations Hematologic/Lymphatic Hematologic/Lymphatic: Denies easy bruising Allergic/Immunologic Allergic/Immunologic: Denies urticaria, Denies throat swelling and Denies wheezing Patient History <Lulu Guy PA-C - Last Filed: 04/21/21 21:26> Medical History Chicken pox (~1998) Contraceptive management Enterococcus UTI Gastroesophageal reflux disease GERD (gastroesophageal reflux disease) Human papilloma virus (~2013) Hyperglycemia Left hand pain Left knee pain Leukocytosis Leukocytosis Obesity Ovarian cyst (~2012) Renal colic on right side Renal colic on right side Retained ureteral stent Urinary tract infection Yeast vaginitis Surgical History Anesthesia History of hand surgery (~2006) Hx of cystoscopy (03/11/21) S/P foot surgery, left (~2003) S/P removal of left ovary (~2012) Status post delivery (02/19/18) Status post primary low transverse section Family History Father Hypertension Mother Hypertension Grandfather Cancer Grandfather Cancer Grandmother Cancer Social History household members: family Smoking Status: Former smoker alcohol intake: current substance use type: does not use and marijuana (former ) Smoking Status: Former smoker alcohol intake frequency: holidays/special occasions only Substance Use Type: does not use Exam <Lulu Guy PA-C - Last Filed: 04/21/21 21:26> Initial Vital Signs Initial Vital Signs: Vital Signs Temperature 98.1 F 04/21/21 11:06 Pulse Rate 107 H 04/21/21 11:06 Respiratory Rate 24 04/21/21 11:06 Blood Pressure 157/94 H 04/21/21 11:06 Pulse Oximetry 100 04/21/21 11:06 Const General: cooperative, healthy appearing and comfortable HENMT Head: normal to inspection Eyes General: appearance normal, both eyes and all related structures Neck Neck: normal visual inspection Chest Chest: normal inspection of the chest Resp Effort & Inspection: normal respiratory effort Auscultation: clear to auscultation bilaterally Cardio Rate: regular rate Rhythm: regular rhythm GI Other: Abdomen is soft, non distended, nontender to palpation. Positive right-sided CVA tenderness General: CVA tenderness (Right-sided CVA tenderness) Back/Spine/Pelvis Back: normal to inspection Skin General: no rashes or lesions noted Neuro General: patient alert, patient awake and patient oriented x3 Psych Appearance: grossly normal <Ewa Paredes MD - Last Filed: 04/28/21 03:56> Initial Vital Signs Initial Vital Signs: Vital Signs Temperature 98.1 F 04/21/21 11:06 Pulse Rate 107 H 04/21/21 11:06 Respiratory Rate 24 04/21/21 11:06 Blood Pressure 157/94 H 04/21/21 11:06 Pulse Oximetry 100 04/21/21 11:06 Course <Lulu Guy PA-C - Last Filed: 04/21/21 21:26> Orders Ordered: Discontinued Medications Sodium Chloride (Normal Saline 0.9%) 1,000 mls @ 1,000 mls/hr IV BOLUS ONE Stop: 04/21/21 12:12 Last Infusion: 04/21/21 14:19 Dose: 0 mls/hr Documented by: Admin: 04/21/21 11:22 Dose: 1,000 mls/hr Documented by: BRYAN Levofloxacin (Levofloxacin 250 Mg Tablet) 750 mg PO NOW ONE Stop: 04/21/21 13:56 Last Admin: 04/21/21 14:21 Dose: 750 mg Documented by: WILL Ondansetron HCl (Ondansetron 4 Mg/2 Ml Inj) 4 mg IV NOW ONE Stop: 04/21/21 11:14 Last Admin: 04/21/21 11:22 Dose: 4 mg Documented by: BRYAN Vital Signs Vital signs: Vital Signs - 8 hr 04/21/21 14:22 Pulse Rate 91 H Respiratory Rate 18 Blood Pressure 147/79 H Pulse Oximetry 100 <Ewa Paredes MD - Last Filed: 04/28/21 03:56> Orders Ordered: Discontinued Medications Sodium Chloride (Normal Saline 0.9%) 1,000 mls @ 1,000 mls/hr IV BOLUS ONE Stop: 04/21/21 12:12 Last Infusion: 04/21/21 14:19 Dose: 0 mls/hr Documented by: Admin: 04/21/21 11:22 Dose: 1,000 mls/hr Documented by: BRYAN Levofloxacin (Levofloxacin 250 Mg Tablet) 750 mg PO NOW ONE Stop: 04/21/21 13:56 Last Admin: 04/21/21 14:21 Dose: 750 mg Documented by: WILL Ondansetron HCl (Ondansetron 4 Mg/2 Ml Inj) 4 mg IV NOW ONE Stop: 04/21/21 11:14 Last Admin: 04/21/21 11:22 Dose: 4 mg Documented by: BRYAN Vital Signs Vital signs: Vital Signs - 8 hr 04/21/21 14:22 Pulse Rate 91 H Respiratory Rate 18 Blood Pressure 147/79 H Pulse Oximetry 100 MDM - Fever <Lulu Guy PA-C - Last Filed: 04/21/21 21:26> Lab Data Attestation: I reviewed the patient's lab results. Lab results narrative: Labs within normal limits. UA positive for UTI. Result diagrams: 04/21/21 11:11 04/21/21 11:11 Labs: Lab Results 04/21/21 04/21/21 04/21/21 Range/Units 11:11 11:11 11:11 WBC 12.6 H (4.5-11.0) X10^3/uL RBC 4.72 (4.0-5.2) X10^6/uL Hgb 12.5 (12.0-16.0) g/dL Hct 37.5 (36-46) % MCV 79.5 L (80-100) fL MCH 26.5 (26-34) PG MCHC 33.3 (30-36) % RDW 15.2 H (11.6-14.8) % Plt Count 245 (150-400) X10^3/uL Neut % (Auto) 75.9 H (50-75) % Lymph % (Auto) 17.1 L (25-40) % [place] % (Auto) 5.9 (3-14) % Eos % (Auto) 0.4 L (2-4) % Baso % (Auto) 0.7 (0-2) % Neut # (Auto) 9600 H (5531-4946) /uL Lymph # (Auto) 2200 (0134-8433) /uL [place] # (Auto) 700 (0-900) /uL Eos # (Auto) 100 (0-450) /uL Baso # (Auto) 100 (0-100) /uL Sodium 134 L (137-145) mmol/L Potassium 3.3 L (3.4-5.1) mmol/L Chloride 102 (98-107) mmol/L Carbon Dioxide 28 (22-32) mmol/L BUN 10 (7-17) mg/dL Creatinine 0.79 (0.52-1.04) mg/dL Estimated GFR > 60.0 (>60) mL/min BUN/Creatinine Ratio 12.7 (6-22) Glucose 118 H (70-100) mg/dL Lactate 1.6 (0.7-2.1) mmol/L Calcium 8.9 (8.4-10.2) mg/dL Total Bilirubin 0.7 (0.2-1.3) mg/dL AST 21 (14-36) IU/L ALT 23 (<35) IU/L Alkaline Phosphatase 49 (38-126) U/L Total Protein 7.3 (6.3-8.2) g/dL Albumin 4.1 (3.5-5.0) g/dL Globulin 3.2 (1.7-4.1) g/dL Albumin/Globulin Ratio 1.3 (1.0-2.8) Lipase 90 (23-300) U/L Procalcitonin 0.07 (<0.5) ng/mL Urine RBC (0-5/HPF) Urine WBC (0-5/HPF) Ur Squamous Epith Cells (0-5/HPF) Urine Bacteria (None) Ur Culture Indicated? 04/21/21 Range/Units 12:48 WBC (4.5-11.0) X10^3/uL RBC (4.0-5.2) X10^6/uL Hgb (12.0-16.0) g/dL Hct (36-46) % MCV (80-100) fL MCH (26-34) PG MCHC (30-36) % RDW (11.6-14.8) % Plt Count (150-400) X10^3/uL Neut % (Auto) (50-75) % Lymph % (Auto) (25-40) % [place] % (Auto) (3-14) % Eos % (Auto) (2-4) % Baso % (Auto) (0-2) % Neut # (Auto) (8186-8616) /uL Lymph # (Auto) (0367-8524) /uL Chester # (Auto) (0-900) /uL Eos # (Auto) (0-450) /uL Baso # (Auto) (0-100) /uL Sodium (137-145) mmol/L Potassium (3.4-5.1) mmol/L Chloride (98-107) mmol/L Carbon Dioxide (22-32) mmol/L BUN (7-17) mg/dL Creatinine (0.52-1.04) mg/dL Estimated GFR (>60) mL/min BUN/Creatinine Ratio (6-22) Glucose (70-100) mg/dL Lactate (0.7-2.1) mmol/L Calcium (8.4-10.2) mg/dL Total Bilirubin (0.2-1.3) mg/dL AST (14-36) IU/L ALT (<35) IU/L Alkaline Phosphatase (38-126) U/L Total Protein (6.3-8.2) g/dL Albumin (3.5-5.0) g/dL Globulin (1.7-4.1) g/dL Albumin/Globulin Ratio (1.0-2.8) Lipase (23-300) U/L Procalcitonin (<0.5) ng/mL Urine RBC 5-10/hpf H (0-5/HPF) Urine WBC 5-10/hpf H (0-5/HPF) Ur Squamous Epith Cells 1-5 /hpf (0-5/HPF) Urine Bacteria Moderate (10-30) H (None) Ur Culture Indicated? Specimen cultured Point of Care Testing Test Results Negative Urine Dip Bedside Urine Glucose Negative Bedside Urine Bilirubin - Negative Bedside Urine Ketone - Negative Urine Specific [place] 1.010 Bedside Urine Occult Blood +++ Bedside Urine pH 6.0 Bedside Urine Protein +/- 15 Bedside Urine Urobilinogen - Negative Bedside Urine Nitrite - Negative Bedside Urine Leukocytes ++ [address] scan - abdomen/pelvis: Radiologist's Impression: PROCEDURE:? CT ABDOMEN PELVIS W CON ? INDICATIONS:? ?PYELO; ? KIDNEY stone; check stent placement ? TECHNIQUE:? After the administration of intravenous contrast, axial sections acquired from the lung bases to the pubic symphysis.? Coronal and sagittal reformats were performed.? For radiation dose reduction, the following was used:? automated exposure control, adjustment of mA and/or kV according to patient size.? ? COMPARISON:? [facility], CT, CT KIDNEY URETER BLADDER (KUB), 03/02/2021, 7:58. ? FINDINGS:? Image quality:? Excellent.? ? Lung bases:? Unremarkable. Heart:? No significant findings. ? ABDOMEN: Liver:? Stable circumscribed oval fat density lesion with a thin peripheral calcified rim when compared to the prior CT from 03/02/2021.? There may be a thin tract extending to the superior liver surface on coronal images.? The liver is diffusely hypoattenuating, consistent with fatty infiltration.? The liver is mildly enlarged, measuring 20.3 cm in craniocaudal extent.? ? Gallbladder:? Unremarkable. Biliary ducts:? Unremarkable.? ? Pancreas:? Unremarkable.? ? Spleen:? Unremarkable.? ? Adrenal Glands:? Unremarkable.? ? Kidneys and Ureters:? A right ureteral stent is present.? There is calcific density material within the right lower pole renal calices.? The previously seen ureteral calculus is no longer seen.? Mild prominence of the right renal pelvis and calices is seen.? There is mild right-sided perinephric fat stranding.? There is mild heterogeneity of the right renal cortical enhancement.? The left kidney enhances normally.? No left-sided hydronephrosis or hydroureter. ? Stomach and Bowel:? Stomach, small bowel loops, and colon are unremarkable.? Peritoneum:? No abnormal intraperitoneal fluid.? No free air.? ? Ventral Wall: ? No hernias.? Abdominal Nodes:? No retroperitoneal or mesenteric adenopathy by size criteria.? Vessels:? Aorta and inferior vena cava are normal in size.? ? PELVIS: Pelvic Organs:? Unremarkable.? ? Bladder:? Unremarkable.? ? Pelvic Nodes: No enlarged lymph nodes.? Miscellaneous: No hernias are seen. ? ? ? Bones:? There is bilateral spondylolysis of L5 without significant spondylolisthesis. ? ? IMPRESSION:? 1. Right-sided ureteral stent is seen in expected position.? Mildly heterogeneous enhancement of the right kidney with mild perinephric fat stranding is suspicious for pyelonephritis. 2. Previously seen right ureteral calculus is no longer visualized.? Calcific material within the right lower pole calices may represent a branching calculus or calcified debris. 3. Mild hepatomegaly and diffuse hepatic steatosis. 4. Stable nonspecific circumscribed fat containing lesion in the superior right hepatic lobe. ? ? Dictated by: Get Masterson M.D. on 04/21/2021 at 12:39 ? ? Approved by: Get Masterson M.D. on 04/21/2021 at 12:52 ? MDM Narrative Medical decision making narrative: 30-year-old female presents to the ED with 2 days of fever, chills, nausea, flank pain. Concern for pyelonephritis versus cystitis versus kidney stone versus complications from stent/lithotripsy. Will order labs, hCG, UA, urine culture, CT abdomen pelvis. Will treat symptoms with IV fluids, Zofran. Will reassess. UA positive for UTI. Labs within normal limits. CT abdomen pelvis without acute findings. Findings discussed with urologist Dr. Frank. Patient was given 1 dose of levofloxacin in the ED for pyelonephritis. Patient to complete a 10 day course of ciprofloxacin. Patient will follow-up with urologist Dr. Foster. ED return precautions discussed with patient. Patient verbalized understanding. Patient discharged. <Ewa Paredes MD - Last Filed: 04/28/21 03:56> Lab Data Labs: Lab Results 04/21/21 04/21/21 04/21/21 Range/Units 11:11 11:11 11:11 WBC 12.6 H (4.5-11.0) X10^3/uL RBC 4.72 (4.0-5.2) X10^6/uL Hgb 12.5 (12.0-16.0) g/dL Hct 37.5 (36-46) % MCV 79.5 L (80-100) fL MCH 26.5 (26-34) PG MCHC 33.3 (30-36) % RDW 15.2 H (11.6-14.8) % Plt Count 245 (150-400) X10^3/uL Neut % (Auto) 75.9 H (50-75) % Lymph % (Auto) 17.1 L (25-40) % [place] % (Auto) 5.9 (3-14) % Eos % (Auto) 0.4 L (2-4) % Baso % (Auto) 0.7 (0-2) % Neut # (Auto) 9600 H (0747-3800) /uL Lymph # (Auto) 2200 (0857-4494) /uL [place] # (Auto) 700 (0-900) /uL Eos # (Auto) 100 (0-450) /uL Baso # (Auto) 100 (0-100) /uL Sodium 134 L (137-145) mmol/L Potassium 3.3 L (3.4-5.1) mmol/L Chloride 102 (98-107) mmol/L Carbon Dioxide 28 (22-32) mmol/L BUN 10 (7-17) mg/dL Creatinine 0.79 (0.52-1.04) mg/dL Estimated GFR > 60.0 (>60) mL/min BUN/Creatinine Ratio 12.7 (6-22) Glucose 118 H (70-100) mg/dL Lactate 1.6 (0.7-2.1) mmol/L Calcium 8.9 (8.4-10.2) mg/dL Total Bilirubin 0.7 (0.2-1.3) mg/dL AST 21 (14-36) IU/L ALT 23 (<35) IU/L Alkaline Phosphatase 49 (38-126) U/L Total Protein 7.3 (6.3-8.2) g/dL Albumin 4.1 (3.5-5.0) g/dL Globulin 3.2 (1.7-4.1) g/dL Albumin/Globulin Ratio 1.3 (1.0-2.8) Lipase 90 (23-300) U/L Procalcitonin 0.07 (<0.5) ng/mL Urine RBC (0-5/HPF) Urine WBC (0-5/HPF) Ur Squamous Epith Cells (0-5/HPF) Urine Bacteria (None) Ur Culture Indicated? 04/21/21 Range/Units 12:48 WBC (4.5-11.0) X10^3/uL RBC (4.0-5.2) X10^6/uL Hgb (12.0-16.0) g/dL Hct (36-46) % MCV (80-100) fL MCH (26-34) PG MCHC (30-36) % RDW (11.6-14.8) % Plt Count (150-400) X10^3/uL Neut % (Auto) (50-75) % Lymph % (Auto) (25-40) % [place] % (Auto) (3-14) % Eos % (Auto) (2-4) % Baso % (Auto) (0-2) % Neut # (Auto) (5724-6184) /uL Lymph # (Auto) (1223-3318) /uL [place] # (Auto) (0-900) /uL Eos # (Auto) (0-450) /uL Baso # (Auto) (0-100) /uL Sodium (137-145) mmol/L Potassium (3.4-5.1) mmol/L Chloride (98-107) mmol/L Carbon Dioxide (22-32) mmol/L BUN (7-17) mg/dL Creatinine (0.52-1.04) mg/dL Estimated GFR (>60) mL/min BUN/Creatinine Ratio (6-22) Glucose (70-100) mg/dL Lactate (0.7-2.1) mmol/L Calcium (8.4-10.2) mg/dL Total Bilirubin (0.2-1.3) mg/dL AST (14-36) IU/L ALT (<35) IU/L Alkaline Phosphatase (38-126) U/L Total Protein (6.3-8.2) g/dL Albumin (3.5-5.0) g/dL Globulin (1.7-4.1) g/dL Albumin/Globulin Ratio (1.0-2.8) Lipase (23-300) U/L Procalcitonin (<0.5) ng/mL Urine RBC 5-10/hpf H (0-5/HPF) Urine WBC 5-10/hpf H (0-5/HPF) Ur Squamous Epith Cells 1-5 /hpf (0-5/HPF) Urine Bacteria Moderate (10-30) H (None) Ur Culture Indicated? Specimen cultured Point of Care Testing Test Results Negative Urine Dip Bedside Urine Glucose Negative Bedside Urine Bilirubin - Negative Bedside Urine Ketone - Negative Urine Specific [place] 1.010 Bedside Urine Occult Blood +++ Bedside Urine pH 6.0 Bedside Urine Protein +/- 15 Bedside Urine Urobilinogen - Negative Bedside Urine Nitrite - Negative Bedside Urine Leukocytes ++ 125 Esterase Discharge Plan Departure Patient Disposition: Home Clinical Impression: Pyelonephritis Instructions: DI for Kidney Infection Activity Restrictions/Additional Instructions: You were evaluated in the ED today for fever, chills, flank pain. Your UA was positive for a UTI and your CT abdomen pelvis shows evidence of pyelonephritis, which is a kidney infection. You were given 1 dose of levofloxacin in the ED. You will start ciprofloxacin tonight for 10 days. Please complete the full course of antibiotics. Please follow-up with Dr. Foster. Return to the ED if your symptoms worsen, you experience worsening fevers, chills, nausea, vomiting, flank pain. Prescriptions: No Action nitrofurantoin macrocrystal 100 mg capsule 100 mg PO BID 0RF Label Comments: take 1 capsule by mouth twice a day with food Digestive Advantage Probio-Pre 400 million cell tablet,chewable PO 0RF Referrals: Yamil Arias, DO [Primary Care Provider] - <Ewa Paredes MD - Last Filed: 04/28/21 03:56> Cosign ED Attending Cosignature Attestation: I was immediately available in the department for consultation throughout this patient's visit. I agree with documentation as above. Ewa Paredes MD
[2021-04-21 13:38] LABS: Bacteria Urine Moderate (10-30); Culture Indicated Urine Specimen Cultured; RBC Urine 5-10/HPF (0-5/HPF); Squamous Epithelial Cell Urine 1-5 /HPF (0-5/HPF); WBC Urine 5-10/HPF (0-5/HPF)
[2021-04-21] MEDS: levoFLOXacin 250 MG TABLET 750 MG PO (14:21)
[2021-04-21 14:22] VITALS: BP 147/79; PULSE 91; RESP 18; O2SAT 100
== END 2021-04-21 14:23 | disposition home or self-care (01) ==
PROVIDERS: Emergency Medicine; Emergency Provider Student in an Organized Health Care Education/Training Program; PCP Family Medicine
DX: N10 Acute pyelonephritis (principal)
CPT/HCPCS: 36415; 74177; 80053; 81003; 81015; 81025; 83605; 83690; 84145; 85025; 87040; 87077; 87086; 87186; 96361; 96374; 99284; 99285; J2405

== ENCOUNTER → 2021-04-30 11:58 | Outpatient (CLI) | payer OTHER, SELFPAY ==
--- NOTE | 2021-04-30 12:02 | DI.RAD.S_ITS ---
PROCEDURE: XR KUB INDICATIONS: Right renal calculus TECHNIQUE: One view of the abdomen acquired. COMPARISON: [facility], CT, CT KIDNEY URETER BLADDER (KUB), 03/02/2021, 7:58. [facility], CT, CT ABDOMEN PELVIS W CON, 04/21/2021, 12:23. [facility], CR, XR KUB, 03/10/2021, 9:06. FINDINGS: Surgical changes and devices: There is a right ureteral stent in expected position. Suspect a 5 mm stone in the inferior pole of the right kidney. Bowel: Bowel gas pattern is normal. Soft tissues: No suspicious abdominal calcifications. Visualized solid organ contours appear normal in size. Bones: No suspicious bony lesions. IMPRESSION: There is a right ureteral stent. Suspect a 5 mm right renal stone. Dictated by: Robert Murrieta M.D. on 04/30/2021 at 17:54 Approved by: Robert Murrieta M.D. on 04/30/2021 at 17:57
== END ==
PROVIDERS: PCP Family Medicine; Referring Provider Urology; Visit Provider Urology
DX: N20.0 Calculus of kidney (principal); Z96.0 Presence of urogenital implants
CPT/HCPCS: 74018

== ENCOUNTER → 2021-05-01 08:36 | Outpatient (CLI) | payer OTHER, SELFPAY | PROVIDERS: PCP Family Medicine; Visit Provider Urology | DX: N20.0 Calculus of kidney (principal); R30.0 Dysuria; Z96.0 Presence of urogenital implants | CPT/HCPCS: 81002; 87086 ==

== ENCOUNTER → 2021-05-14 08:16 | Outpatient (CLI) | payer OTHER, SELFPAY ==
--- NOTE | 2021-05-14 08:17 | DI.RAD.S_ITS ---
PROCEDURE: XR KUB INDICATIONS: Right renal calculus, retained stent TECHNIQUE: One view of the abdomen acquired. COMPARISON: [facility], CR, XR KUB, 04/30/2021, 11:53. [facility], CR, XR KUB, 03/10/2021, 9:06. FINDINGS: Surgical changes and devices: There is a right ureteral stent in the expected position. Stone in the inferior pole previously described is not visualized but could be superimposed over the transverse process. No stones in the left kidney. Bowel: Bowel gas pattern is normal. Soft tissues: No suspicious abdominal calcifications. Visualized solid organ contours appear normal in size. Bones: No suspicious bony lesions. IMPRESSION: Right ureteral stent appears in good position. A 5 millimeter stone in the inferior pole previously described is not seen but is probably superimposed over the right L3 transverse process. Dictated by: Howard Olivera M.D. on 05/14/2021 at 8:47 Approved by: Howard Olivera M.D. on 05/14/2021 at 8:49
== END ==
PROVIDERS: PCP Family Medicine; Referring Provider Urology; Visit Provider Urology
DX: N20.0 Calculus of kidney (principal); Z96.0 Presence of urogenital implants
CPT/HCPCS: 74018; 82365

== ENCOUNTER → 2021-05-14 12:30 | Outpatient (CLI) | payer OTHER, SELFPAY ==
[2021-05-19 14:36] LABS: Ca oxalate monohydr 30 % (.); Hydroxyapatite 70 % (.); Size 2x1 mm (.)
== END ==
PROVIDERS: PCP Family Medicine; Visit Provider Urology
DX: N20.0 Calculus of kidney (principal)
CPT/HCPCS: 82365

== ENCOUNTER → 2021-05-15 09:37 | Outpatient (CLI) | payer OTHER, SELFPAY | PROVIDERS: PCP Family Medicine; Visit Provider Urology | DX: N39.0 Urinary tract infection, site not specified (principal); B95.2 Enterococcus as the cause of diseases classified elsewhere; N20.0 Calculus of kidney; R30.0 Dysuria; Z96.0 Presence of urogenital implants | CPT/HCPCS: 81002; 87077; 87086; 87185; 87186 ==

== ENCOUNTER → 2021-06-03 10:05 | Outpatient (CLI) | payer OTHER, SELFPAY ==
[2021-06-03 13:15] LABS: Calcium 9.3 mg/dL (8.4-10.2); Uric Acid 4.7 mg/dL (2.5-6.2)
[2021-06-04 10:51] LABS: Parathyroid Hormone Int 31 pg/mL (15-65)
== END ==
PROVIDERS: PCP Family Medicine; Referring Provider Urology; Visit Provider Urology
DX: N30.01 Acute cystitis with hematuria (principal); N20.0 Calculus of kidney
CPT/HCPCS: 36415; 81002; 82310; 83970; 84550

== ENCOUNTER → 2021-09-10 17:58 | Outpatient (CLI) | payer OTHER, SELFPAY ==
--- NOTE | 2021-09-10 18:02 | DI.RAD.S_ITS ---
PROCEDURE: XR KUB INDICATIONS: calculus of kidney TECHNIQUE: One view of the abdomen acquired. COMPARISON: [facility], CT, CT ABDOMEN PELVIS W CON, 04/21/2021, 12:23. [facility], CR, XR KUB, 05/14/2021, 8:07. FINDINGS: Surgical changes and devices: Interval removal of the right ureteral stent. Bowel: Bowel gas pattern is normal. Soft tissues: No definite renal stone visualized radiographically. Bones: No suspicious bony lesions. IMPRESSION: 1. No definite renal stone visualized radiographically. 2. Interval removal of the right ureteral stent. Dictated by: Get Lentz M.D. on 09/11/2021 at 11:16 Approved by: Get Lentz M.D. on 09/11/2021 at 11:36
== END ==
PROVIDERS: PCP Family Medicine; Referring Provider Urology; Visit Provider Urology
DX: N20.0 Calculus of kidney (principal)
CPT/HCPCS: 74018

== ENCOUNTER → 2022-11-28 10:13 | Outpatient (CLI) | payer OTHER, MEDICAID, SELFPAY ==
[2022-11-28 11:17] LABS: Appearance Urine UA CLEAR; Bilirubin Urine UA NEGATIVE (NEGATIVE); Color Urine UA YELLOW; Glucose Urine UA NEGATIVE (Negative); Ketones Urine UA NEGATIVE (NEGATIVE); Leukocyte Esterase Urine UA 1+ (NEGATIVE); Nitrite Urine UA POSITIVE (Negative); Occult Blood Urine UA NEGATIVE (Negative); Protein Urine UA NEGATIVE (Negative); Specific Gravity Urine UA 1.015 (1.000-1.035); Urobilinogen Urine UA 0.2 E.U./dL (0.2)
[2022-11-28 11:21] LABS: Add Manual Diff / Slide Review NO; Basophils Absolute Auto 0 /uL (0-100); Basophils Percent Auto 0.4 % (0-2); Eosinophils Absolute Auto 100 /uL (0-450); Eosinophils Percent Auto 0.8 % (2-4); Hematocrit 38.4 % (36-46); Hemoglobin 12.7 g/dL (12.0-16.0); Lymphocytes Absolute Auto 2200 /uL (1100-4500); Lymphocytes Percent Auto 19.6 % (25-40); Mean Corpuscular Hemoglobin 26.9 PG (26-34); Mean Corpuscular Volume 81.6 fL (80-100); Monocytes Absolute Auto 500 /uL (0-900); Neutrophils Absolute Auto 8600 /uL (1500-7000); Neutrophils Percent Auto 75.2 % (50-75); Platelet Count 247 X10^3/uL (150-400); Red Blood Cell Count 4.71 X10^6/uL (4.0-5.2); Red Cell Distribution Width 15.6 % (11.6-14.8); White Blood Cell Count 11.4 X10^3/uL (4.5-11.0)
[2022-11-28 11:33] LABS: RBC Urine 0-1/HPF (0-5/HPF)
[2022-11-28 11:34] LABS: Bacteria Urine Many (>30); Culture Indicated Urine Specimen Cultured; Squamous Epithelial Cell Urine 0-1 /HPF (0-5/HPF); WBC Urine 1-5/HPF (0-5/HPF)
[2022-11-28 11:50] LABS: Alanine Aminotransferase 19 IU/L (<35); Aspartate Aminotransferase 20 IU/L (14-36); BUN Creatinine Ratio 17.6 (6-22); Blood Urea Nitrogen 12 mg/dL (7-17); Estimated Glomerular Filt Rate > 60 mL/min (>60); Uric Acid 3.6 mg/dL (2.5-6.2)
[2022-11-30 13:14] LABS: Varicella IgG Antibody 1140 index (Immune >165)
[2022-11-30 16:25] LABS: Hepatitis B Surface Antigen NEGATIVE s/c (NEGATIVE)
[2022-11-30 17:23] LABS: HIV 1 & 2 Ab/Ag 4th Gen Combo NEGATIVE (NEGATIVE); Hep C Virus Ab w/Reflex Quant NEGATIVE s/c (NEGATIVE)
[2022-12-01 05:30] LABS: RPR Screen Non Reactive (Non Reactive)
== END ==
PROVIDERS: PCP Family Medicine; Referring Provider Obstetrics & Gynecology; Visit Provider Obstetrics & Gynecology
DX: Z34.81 Encounter for supervision of other normal pregnancy, first trimester; Z87.59 Personal history of other complications of pregnancy, childbirth and the puerperium
CPT/HCPCS: 36415; 80055; 81003; 81015; 82565; 84450; 84460; 84520; 84550; 86787; 86803; 86850; 86900; 86901; 87077; 87086; 87186; 87389

== ENCOUNTER → 2022-12-08 15:51 | Outpatient (CLI) | payer OTHER, MEDICAID, SELFPAY ==
[2022-12-08 17:33] LABS: Urine N gonorrhoeae NOT DETECTED
[2022-12-08 17:38] LABS: Urine Chlamydia NOT DETECTED
== END ==
PROVIDERS: PCP Family Medicine; Visit Provider Obstetrics & Gynecology
DX: Z34.81 Encounter for supervision of other normal pregnancy, first trimester (principal); Z87.440 Personal history of urinary (tract) infections
CPT/HCPCS: 87086; 87491; 87591

== ENCOUNTER → 2022-12-25 17:00 | Outpatient (CLI) | payer SELFPAY ==
[2022-12-25 18:07] LABS: Appearance Urine UA CLEAR; Bilirubin Urine UA NEGATIVE (NEGATIVE); Color Urine UA YELLOW; Glucose Urine UA NEGATIVE (Negative); Ketones Urine UA NEGATIVE (NEGATIVE); Leukocyte Esterase Urine UA 2+ (NEGATIVE); Nitrite Urine UA POSITIVE (Negative); Occult Blood Urine UA NEGATIVE (Negative); Protein Urine UA NEGATIVE (Negative); Specific Gravity Urine UA <=1.005 (1.000-1.035); Urobilinogen Urine UA 0.2 E.U./dL (0.2)
[2022-12-25 18:15] LABS: pH Urine UA 6.5 (4.5-8.0)
[2022-12-25 18:16] LABS: RBC Urine 0-1/HPF (0-5/HPF)
[2022-12-25 18:17] LABS: Bacteria Urine Many (>30); Culture Indicated Urine Specimen Cultured; Squamous Epithelial Cell Urine 0-1 /HPF (0-5/HPF); WBC Urine 10-30/HPF (0-5/HPF)
== END ==
PROVIDERS: PCP Family Medicine; Referring Provider Specialist; Visit Provider Specialist
DX: R82.90 Unspecified abnormal findings in urine (principal)
CPT/HCPCS: 81001; 87077; 87086; 87186

== ENCOUNTER → 2023-01-29 16:25 | Outpatient (CLI) | payer OTHER, SELFPAY ==
[2023-01-29 17:18] LABS: Appearance Urine UA SL CLOUDY; Bilirubin Urine UA NEGATIVE (NEGATIVE); Color Urine UA YELLOW; Glucose Urine UA NEGATIVE (Negative); Ketones Urine UA NEGATIVE (NEGATIVE); Leukocyte Esterase Urine UA 1+ (NEGATIVE); Nitrite Urine UA POSITIVE (Negative); Occult Blood Urine UA NEGATIVE (Negative); Protein Urine UA NEGATIVE (Negative); Specific Gravity Urine UA 1.025 (1.000-1.035); Urobilinogen Urine UA 0.2 E.U./dL (0.2)
[2023-01-29 17:54] LABS: Bacteria Urine Moderate (10-30); Culture Indicated Urine Cult Not Indicated; RBC Urine 0-1/HPF (0-5/HPF); Squamous Epithelial Cell Urine 1-5 /HPF (0-5/HPF); WBC Urine 5-10/HPF (0-5/HPF)
== END ==
PROVIDERS: PCP Family Medicine; Referring Provider Obstetrics & Gynecology; Visit Provider Obstetrics & Gynecology
DX: R30.0 Dysuria (principal); R82.90 Unspecified abnormal findings in urine
CPT/HCPCS: 81001

== ENCOUNTER → 2023-02-05 14:03 | Outpatient (CLI) | payer OTHER, SELFPAY ==
[2023-02-08 13:43] LABS: AFP, Serum 32.1 ng/mL (.); Estriol, Free 0.96 ng/mL (.); Inhibin A, MoM 0.85 (.); Maternal Ethnicity Caucasian (.); Maternal Weight 269 lbs (.); Number of Fetuses No (.); OSBR Risk 1 IN 7603 (.); Results Report (.); Test Results *Screen Negative* (.); hCG, MoM 1.44 (.)
== END ==
PROVIDERS: PCP Family Medicine; Referring Provider Obstetrics & Gynecology; Visit Provider Obstetrics & Gynecology
DX: Z34.82 Encounter for supervision of other normal pregnancy, second trimester (principal); Z3A.17 17 weeks gestation of pregnancy
CPT/HCPCS: 36415; 82105; 82677; 84702; 86336

== ENCOUNTER → 2023-02-10 12:18 | Outpatient (CLI) | payer OTHER, SELFPAY ==
[2023-02-10 13:28] LABS: Appearance Urine UA SL CLOUDY; Bilirubin Urine UA NEGATIVE (NEGATIVE); Color Urine UA YELLOW; Glucose Urine UA NEGATIVE (Negative); Ketones Urine UA TRACE (NEGATIVE); Leukocyte Esterase Urine UA NEGATIVE (NEGATIVE); Nitrite Urine UA POSITIVE (Negative); Occult Blood Urine UA NEGATIVE (Negative); Protein Urine UA NEGATIVE (Negative); Urobilinogen Urine UA 0.2 E.U./dL (0.2)
[2023-02-10 13:45] LABS: Amorphous Sediment Urine 1+; Bacteria Urine Many (>30); Culture Indicated Urine Specimen Cultured; RBC Urine None Seen (0-5/HPF); Squamous Epithelial Cell Urine 1-5 /HPF (0-5/HPF); WBC Urine 1-5/HPF (0-5/HPF)
== END ==
PROVIDERS: PCP Family Medicine; Referring Provider Obstetrics & Gynecology; Visit Provider Obstetrics & Gynecology
DX: R30.0 Dysuria (principal)
CPT/HCPCS: 81001; 87077; 87086; 87186

== ENCOUNTER → 2023-02-25 10:10 | Outpatient (CLI) | payer OTHER, SELFPAY ==
--- NOTE | 2023-02-25 10:11 | DI.US.S_ITS ---
PROCEDURE: US OB >= 14 WEEKS FETUS INDICATIONS: 20 Anatomy Scan OUTSIDE/PRIOR DATING DATA: Last menstrual period (LMP): 10/08/2022. LMP-based estimated date of delivery (CANDE): 07/15/2023. First dating scan (date and location): 12/08/2022. Estimated date of delivery (CANDE) from first dating scan: 07/13/2023. The calculations are made using the LMP CANDE of 07/15/2023. TECHNIQUE: Real-time scanning was performed of the fetus, with image documentation and biometric measurements. COMPARISON: None. FINDINGS: General: A single living intrauterine gestation is present. Presentation: Transverse to the right. Placenta: Placental position is posterior , without previa. Amniotic fluid index: 12.7 cm, normal range is 5-24 cm. Single deepest vertical pocket is 4.4 cm. heart rate: 147 beats per minute. Maternal cervical canal: 6.9 cm long. Normal lower limit is 2.5 cm. biometrics: Biparietal diameter: 4.7 cm. 20 weeks 2 days Head circumference: 17.6 cm. 20 weeks 1 day Abdominal circumference: 15.4 cm. 20 weeks 4 days Femur length: 3.3 cm. 20 weeks 2 days Clinically estimated gestational age: 20 weeks 0 days Composite gestational age from present scan: 20 weeks 2 days Estimated weight and percentile: 350 g. 67th percentile. Anatomic survey: Neuro: Ventricles are non-dilated at less than 10 mm. Cisterna magna is normal at 3-11 mm. Cerebellum is normal in size and morphology. Nuchal skin fold: Normal at less than 6 mm between 14-21 weeks gestational age. Face: Not well seen Spine: No evidence for spina bifida. Heart: Not well seen Diaphragm: Not well seen Stomach: Left-sided stomach is present. Kidneys: No hydronephrosis. Normal is less than 5 mm in 2nd trimester, less than 7 mm in 3rd trimester. Cord: Not well seen Bladder: Normal in size. Extremities: All 4 extremities identified. IMPRESSION: 1. Single live intrauterine with an estimated gestational age of 20 weeks 0 days. 2. Incomplete anatomy scan. The 4 chamber views, outflow tracts, diaphragm, face, profile, and placental cord insertion could not be visualized. The visualized anatomy is normal. We strive to produce accurate, complete, and clear reports of imaging services. To assist us in improving patient care, this report was composed using standard report templates and voice recognition software. Therefore, it may contain abnormal punctuation, insertions and/or omissions. Occasional wrong-word or sound-alike substitutions may occur. Though we review the report and make efforts to correct it, we do recommend that the report be read carefully in proper context to recognize any text inaccuracies. Dictated by: Howard Olivera M.D. on 02/25/2023 at 12:06 Approved by: Howard Olivera M.D. on 02/25/2023 at 12:11
== END ==
PROVIDERS: PCP Family Medicine; Referring Provider Obstetrics & Gynecology; Visit Provider Obstetrics & Gynecology
DX: Z34.82 Encounter for supervision of other normal pregnancy, second trimester (principal); Z3A.20 20 weeks gestation of pregnancy
CPT/HCPCS: 76811

== ENCOUNTER → 2023-03-05 12:52 | Outpatient (CLI) | payer OTHER, SELFPAY ==
--- NOTE | 2023-03-05 12:53 | DI.US.S_ITS ---
PROCEDURE: US OB FOLLOW UP INDICATIONS: Follow up anatomy scan OUTSIDE/PRIOR DATING DATA: Last menstrual period (LMP): 10/08/2022. LMP-based estimated date of delivery (CANDE): 07/15/2023 First dating scan (date and location): 12/08/2022 Estimated date of delivery (CANDE) from first dating scan: 07/13/2023. The calculations are made using the 07/15/2023 CANDE of 07/15/2023. TECHNIQUE: Real-time scanning was performed of the fetus, with image documentation and biometric measurements. Endovaginal scanning: None COMPARISON: None. FINDINGS: General: A single living intrauterine gestation is present. Presentation: Vertex. Placenta: Placental position is posterior. The placental edge is within a cm of internal os . Amniotic fluid index: 12.2 cm, normal range is 5-24 cm. Single deepest vertical pocket is 3.7 cm. heart rate: 147 beats per minute. Maternal cervical canal: 4.2 cm long. Normal lower limit is 2.5 cm. Clinically estimated gestational age: 21 week 1 day Anatomic survey: Neuro: Ventricles are normal at less than 10 mm. Cisterna magna is normal at 3-11 mm. Cerebellum is normal in size and morphology. Nuchal skin fold: Normal at less than 6 mm between 14 and 21 weeks gestational age. Face: Nose and lips, facial profile are normal. Spine: No evidence for spina bifida. Heart: 4-chambered heart is present. Ventricular outflow tracks not well visualized. Diaphragm: Diaphragm is intact. Stomach: Left-sided stomach is present. Kidneys: No hydronephrosis. Normal is less than 5 mm in 2nd trimester, less than 7 mm in 3rd trimester. Cord: 3 vessel cord has orthotopic insertion. Bladder: Normal in size. Extremities: All 4 extremities are visualized. IMPRESSION: Single live intrauterine consistent with a 21 week 1 day gestation. Marginal placental previa. Nonvisualized cardiac catheterization ventricular outflow tracks. Remainder of the anatomic survey within normal limits Approved by: Med Faulkner M.D. on 03/05/2023 at 18:29
== END ==
PROVIDERS: PCP Family Medicine; Referring Provider Obstetrics & Gynecology; Visit Provider Obstetrics & Gynecology
DX: O44.22 Partial placenta previa NOS or without hemorrhage, second trimester (principal); Z3A.21 21 weeks gestation of pregnancy
CPT/HCPCS: 76816

== ENCOUNTER → 2023-04-02 13:13 | Outpatient (CLI) | payer OTHER, SELFPAY ==
[2023-04-02 16:00] LABS: Hematocrit 34.8 % (36-46); Hemoglobin 11.6 g/dL (12.0-16.0)
[2023-04-02 16:19] LABS: GTT (PREG) 1 Hour PP 50gm Dose 131 mg/dL (76-139)
== END ==
PROVIDERS: PCP Family Medicine; Referring Provider Obstetrics & Gynecology; Visit Provider Obstetrics & Gynecology
DX: Z34.82 Encounter for supervision of other normal pregnancy, second trimester (principal); Z3A.26 26 weeks gestation of pregnancy
CPT/HCPCS: 36415; 82950; 85014; 85018

== ENCOUNTER → 2023-04-25 10:33 | Outpatient (CLI) | payer OTHER, MEDICAID, SELFPAY | PROVIDERS: PCP Family Medicine; Visit Provider Nurse Practitioner Family | DX: J02.9 Acute pharyngitis, unspecified (principal) | CPT/HCPCS: 87070; 87147 ==

== ENCOUNTER → 2023-05-26 09:58 | Outpatient (CLI) | payer OTHER, MEDICAID, SELFPAY | PROVIDERS: PCP Family Medicine; Visit Provider Obstetrics & Gynecology | DX: R30.0 Dysuria (principal); R82.998 Other abnormal findings in urine | CPT/HCPCS: 87077; 87086; 87186 ==

== ENCOUNTER 2023-06-16 08:55 | Outpatient (CLI) | payer OTHER, MEDICAID, SELFPAY | END 2023-06-16 09:57 | disposition home or self-care (01) | LOC: LABOR 09:00 → OB 06-25 14:35 | PROVIDERS: PCP Family Medicine; Referring Provider Obstetrics & Gynecology; Visit Provider Obstetrics & Gynecology | DX: O13.3 Gestational [pregnancy-induced] hypertension without significant proteinuria, third trimester (principal); Z3A.35 35 weeks gestation of pregnancy | CPT/HCPCS: 59025; G0378; G0379 ==

== ENCOUNTER 2023-06-18 15:24 | Outpatient (CLI) | payer OTHER, MEDICAID, SELFPAY ==
[2023-06-18] VITALS (26 sets, daily range): BP systolic 131–183; BP diastolic 63–98; PULSE 74–95; RESP 13–27; TEMP 36.6; O2SAT 96–100; BMI 49.4
[2023-06-18 16:09] LABS: Bacteria Urine Occasional (0-1); Culture Indicated Urine Cult Not Indicated; RBC Urine 0-1/HPF (0-5/HPF); Squamous Epithelial Cell Urine 1-5 /HPF (0-5/HPF); Urine Volume 10mL (spun); WBC Urine None Seen (0-5/HPF)
--- NOTE | 2023-06-18 16:27 | ED_ITS ---
HPI - Back Pain/Injury General Chief Complaint: Back Pain/Injury Stated Complaint: symptoms of Kidney stone 36 weeks Time Seen by Provider: 06/18/23 16:01 Source: patient History of Present Illness HPI Narrative: Patient is a 32-year-old female , prior kidney stone with stent in 2020, gestational hypertension presenting today with right-sided back pain. She is currently 36 weeks she is taking labetalol however the last 2 days she has forgotten to take labetalol. She presents today with some right-sided pain. She has not in any sort of acute distress she says that the pain is sort of subsided. It has not radiating around to her front. She denies any sort of abdominal pain vaginal bleeding or leakage of fluid. She denies any headache no lower extremity swelling. She reports that her primary since she does not have preeclampsia just gestational hypertension. She says that she has not out of her labetalol she just test for gotten to take and in the last 2 days. Related Data Home Medications Medication Instructions Recorded Confirmed folic acid 400 mcg tablet 0.4 mg PO DAILY 11/25/22 05/26/23 vitamin-ferrous sulfate tab PO 11/25/22 05/26/23 27 mg iron-folic acid 0.8 mg tablet Previous Rx's Medication Instructions Recorded pantoprazole 40 mg tablet,delayed 40 mg PO DAILY for heartburn #90 03/11/23 release tabs labetalol 200 mg tablet 200 mg PO BID #60 tabs 05/05/23 ondansetron 4 mg disintegrating 4 mg PO Q6H PRN nausea and 05/10/23 tablet vomiting in #20 tabs Allergies Allergy/AdvReac Type Severity Reaction Status Date / Time No Known Drug Allergies Allergy Verified 06/11/23 08:47 Patient History Medical History induced hypertension Skin tags, multiple acquired Cervical myofascial strain Foreign body sensation in right ear canal History of UTI Calcium oxalate stones Yeast vaginitis Urinary tract infection Renal calculus, right Leukocytosis Hyperglycemia Leukocytosis Rosacea Chicken pox (~1998) Ovarian cyst (~2012) Human papilloma virus (~2013) Left knee pain Left hand pain Obesity Failure to progress in labor Surgical History Hx of cystoscopy (03/11/21) Anesthesia S/P removal of left ovary (~2012) History of hand surgery (~2006) S/P foot surgery, left (~2003) Status post delivery (05/10/17) Status post primary low transverse section Family History Father Hypertension Mother Hypertension Crohn's disease Alcohol abuse Grandfather Cancer Alcohol abuse Grandfather Cancer Grandmother Lung cancer Alcohol abuse Grandmother No problems noted. Brother Healthy adult Sister Healthy adult Sister Depression Anxiety Family/Other Pacemaker Smoker Hypertension Family/Other Anxiety Depression Family/Other Anencephaly Social History marital status: unmarried,living together number of children: 1 household members: significant other, family and other (parents) lives independently: Yes caregiver/support person: Yes housing: house pets and animals: Yes (2 dogs, 1 cat; pt not managing litter box) education level: high school occupational status: employed (office job) current occupational exposures/hazards: No special carole needs: No travel history: over 6 months ago seatbelt use: always water heater temp set < 120 deg: Yes working smoke detector in home: Yes fire extinguisher in home: Yes carbon monox detector in home: Yes firearms in home: Yes firearms unloaded and locked: Yes do you feel safe at home: Yes Smoking Status: Former smoker second hand exposure: Yes (mother smokes outside, s/o vapes outside) alcohol intake: former (occasionally when not ) substance use type: does not use during the past year weight has: remained stable well-balanced diet: about half the time daily servings fruits/ve-4 caffeine: Yes (black tea) Type(s) of exercise: walking and other (hiking) Smoking Status: Former smoker alcohol intake frequency: holidays/special occasions only Substance Use Type: does not use Exam Initial Vital Signs Initial Vital Signs: Vital Signs Temperature 98 F 06/18/23 15:35 Pulse Rate 74 06/18/23 15:35 Respiratory Rate 16 06/18/23 15:35 Blood Pressure 183/89 H 06/18/23 15:35 Pulse Oximetry 99 06/18/23 15:35 Oxygen Delivery Method Room Air 06/18/23 15:35 GENERAL: Alert well-appearing 32-year-old female HEENT: Head atraumatic,EOMI, pupils reactive, face symmetric, moist mucous membranes CARDIOVASCULAR: Regular rate and rhythm without murmurs, rubs or gallops. RESPIRATORY: Breath sounds equal bilaterally, no wheezes rales or rhonchi. ABDOMEN: Soft, gravid nontender no guarding no rebound : Minimal right CVA tenderness EXTREMITIES: Normal range of motion, no clubbing or edema. Neurovascularly intact NEUROLOGICAL: Alert and oriented x4.Normal gait and speech. SKIN: Warm, dry, no laceration, no petechiae, no rashes or lesions. Course Orders Ordered: ED Orders 06/18/23 15:57 Urine Microscopic Stat 06/18/23 16:20 CBC Auto Diff [Complete Blood Count AUTO DIFF] Stat CMP [Comprehensive Metabolic Panel] Stat LDH [Lactate Dehydrogenase] Stat Uric Acid Stat 06/18/23 16:41 US abdomen complete Stat Discontinued Medications Sodium Chloride (Normal Saline 0.9%) 1,000 mls @ 1,000 mls/hr IV BOLUS ONE Stop: 06/18/23 17:38 Last Infusion: 06/18/23 17:42 Dose: Infused Documented By: Admin: 06/18/23 16:44 Dose: 1,000 mls/hr Documented By: CHRISTELLE Labetalol HCl (Labetalol 20 Mg/4 Ml Syringe) 5 mg IV NOW ONE Stop: 06/18/23 16:37 Last Admin: 06/18/23 16:48 Dose: 5 mg Documented By: CHRISTELLE Ondansetron HCl (Ondansetron 4 Mg/2 Ml Inj) 4 mg IV NOW ONE Stop: 06/18/23 16:40 Last Admin: 06/18/23 16:46 Dose: 4 mg Documented By: CHRISTELLE Vital Signs Vital signs: Vital Signs - 8 hr 06/18/23 15:35 06/18/23 16:11 06/18/23 16:13 Temperature 98 F Pulse Rate 74 89 Respiratory Rate 16 Blood Pressure 183/89 H 181/95 H Pulse Oximetry 99 100 Oxygen Delivery Method Room Air 06/18/23 16:13 06/18/23 16:15 06/18/23 16:20 Temperature Pulse Rate 88 90 79 Respiratory Rate 27 H 22 Blood Pressure Pulse Oximetry 98 98 97 Oxygen Delivery Method 06/18/23 16:25 06/18/23 16:28 06/18/23 16:28 Temperature Pulse Rate 86 93 H Respiratory Rate 18 17 Blood Pressure 181/98 H Pulse Oximetry 97 97 Oxygen Delivery Method 06/18/23 16:30 06/18/23 16:30 06/18/23 16:35 Temperature Pulse Rate 86 91 H Respiratory Rate 19 Blood Pressure 178/88 H Pulse Oximetry 97 97 Oxygen Delivery Method 06/18/23 16:40 06/18/23 16:45 06/18/23 16:48 Temperature Pulse Rate 95 H 88 81 Respiratory Rate 17 21 Blood Pressure 178/88 H Pulse Oximetry 98 97 Oxygen Delivery Method 06/18/23 16:50 06/18/23 16:55 06/18/23 16:55 Temperature Pulse Rate 84 80 Respiratory Rate 21 21 Blood Pressure 172/91 H Pulse Oximetry 97 96 Oxygen Delivery Method 06/18/23 17:00 06/18/23 17:00 06/18/23 17:05 Temperature Pulse Rate 81 82 Respiratory Rate 21 21 Blood Pressure 167/88 H Pulse Oximetry 98 97 Oxygen Delivery Method 06/18/23 17:05 06/18/23 17:10 06/18/23 17:10 Temperature Pulse Rate 86 Respiratory Rate 18 Blood Pressure 164/87 H 154/82 H Pulse Oximetry 97 Oxygen Delivery Method 06/18/23 17:15 06/18/23 17:15 06/18/23 17:20 Temperature Pulse Rate 85 74 Respiratory Rate 16 13 Blood Pressure 144/77 H Pulse Oximetry 97 96 Oxygen Delivery Method 06/18/23 17:21 06/18/23 17:21 06/18/23 17:25 Temperature Pulse Rate 78 Respiratory Rate 24 Blood Pressure 131/63 135/68 Pulse Oximetry 96 Oxygen Delivery Method 06/18/23 17:25 06/18/23 17:30 06/18/23 17:31 Temperature Pulse Rate 85 94 H 92 H Respiratory Rate 20 24 26 H Blood Pressure Pulse Oximetry 97 97 96 Oxygen Delivery Method 06/18/23 17:31 06/18/23 17:35 06/18/23 17:35 Temperature Pulse Rate 84 Respiratory Rate 26 H Blood Pressure 164/85 H 153/82 H Pulse Oximetry 98 Oxygen Delivery Method 06/18/23 17:38 06/18/23 17:40 06/18/23 17:40 Temperature Pulse Rate 75 81 Respiratory Rate 26 H Blood Pressure 153/82 H 156/94 H Pulse Oximetry 97 Oxygen Delivery Method MDM - Back Pain/Injury Lab Data 06/18/23 16:20 06/18/23 16:20 Labs: Lab Results 06/18/23 06/18/23 Range/Units 15:57 16:20 WBC 13.5 H (4.5-11.0) X10^3/uL RBC 4.33 (4.0-5.2) X10^6/uL Hgb 11.7 L (12.0-16.0) g/dL Hct 35.5 L (36-46) % MCV 82.1 (80-100) fL MCH 27.0 (26-34) PG MCHC 32.9 (30-36) % RDW 15.4 H (11.6-14.8) % Plt Count 221 (150-400) X10^3/uL Neut % (Auto) 79.8 H (50-75) % Lymph % (Auto) 15.6 L (25-40) % [place] % (Auto) 3.6 (3-14) % Eos % (Auto) 0.5 L (2-4) % Baso % (Auto) 0.5 (0-2) % Neut # (Auto) 84884 H (6934-9629) /uL Lymph # (Auto) 2100 (3464-8683) /uL [place] # (Auto) 500 (0-900) /uL Eos # (Auto) 100 (0-450) /uL Baso # (Auto) 100 (0-100) /uL Sodium 134 L (137-145) mmol/L Potassium 3.9 (3.4-5.1) mmol/L Chloride 109 H (98-107) mmol/L Carbon Dioxide 17 L (22-32) mmol/L BUN 9 (7-17) mg/dL Creatinine 0.64 (0.52-1.04) mg/dL Estimated GFR > 60 (>60) mL/min BUN/Creatinine Ratio 14.1 (6-22) Glucose 82 (70-100) mg/dL Uric Acid 4.5 (2.5-6.2) mg/dL Calcium 9.4 (8.4-10.2) mg/dL Total Bilirubin 0.5 (0.2-1.3) mg/dL AST 20 (14-36) IU/L ALT 14 (<35) IU/L Alkaline Phosphatase 141 H (38-126) U/L Lactate Dehydrogenase 197 (120-246) U/L Total Protein 6.8 (6.3-8.2) g/dL Albumin 3.5 (3.5-5.0) g/dL Globulin 3.3 (1.7-4.1) g/dL Albumin/Globulin Ratio 1.1 (1.0-2.8) Urine RBC 0-1/hpf (0-5/HPF) Urine WBC None seen (0-5/HPF) Ur Squamous Epith Cells 1-5 /hpf (0-5/HPF) Urine Bacteria Occasional (0-1) (None) Ur Culture Indicated? Cult not indicated Vol Urine Centrifuged 10ml (spun) Urine Dip Bedside Urine Glucose Negative Bedside Urine Bilirubin - Negative Bedside Urine Ketone + 15 Urine Specific [place] 1.015 Bedside Urine Occult Blood - Negative Bedside Urine pH 6.5 Bedside Urine Protein - Negative Bedside Urine Urobilinogen - Negative Bedside Urine Nitrite - Negative Bedside Urine Leukocytes - Negative Esterase Imaging Data US - abdomen: Radiologist's Impression: PROCEDURE: US ABDOMEN COMPLETE INDICATIONS: right flank pain, 36 weeks preg TECHNIQUE: Real-time scanning was performed of the abdominal and retroperitoneal organs, with image documentation. COMPARISON: None. FINDINGS: Liver: Liver is normal in size. Liver is mildly increased in echogenicity. Gallbladder: Gallbladder is within normal limits. No gallstones or gallbladder wall thickening. Biliary ducts: Intrahepatic bile ducts are not well seen. Extrahepatic bile duct caliber measures 4.2 mm. Normal is 6-7 mm or less in diameter, or 10 mm or less post-cholecystectomy. Pancreas: Not well seen. Spleen: Spleen is mildly enlarged measuring 13.3 centimeters. Otherwise within normal limits. Kidneys: Kidneys are normal in size and echotexture. Right kidney measures 10.9 cm long; left kidney measures 11.8 cm long. Mild right hydronephrosis. No left hydronephrosis. Nonobstructing calcification within the right Kidney measuring 9 millimeters.. No solid masses. Aorta: Visualized aorta is normal in caliber at less than 3 cm. Distal aorta is not seen. Iliacs: Not seen. IVC: Intrahepatic inferior vena cava is patent. Miscellaneous: No free abdominal fluid. Intrauterine gestation with heart rate measuring 136 beats per minute. IMPRESSION: 1. Mild right hydronephrosis, may be related to gravid uterus. Nonobstructing right renal stone measuring 9 millimeters. 2. Mild hepatic steatosis. Dictated by: Josh Bunch M.D. on 06/18/2023 at 17:49 MDM Narrative Medical decision making narrative: Patient 32-year-old female currently 36 weeks history of kidney stones presents today with right flank pain. She is noted to be hypertensive. Reports that she is noncompliant with labetalol. She has no headache abdominal pain or vaginal bleeding. Blood pressure is repeated and remains high she has given a dose of labetalol. Blood work is reviewed no protein in urine, uric acid 4.5, LDH 197 AST 20, ALT 14, platelets 221 Abdominal ultrasound does show a 9 mm stone right hydronephrosis Patient 36 weeks presenting today with back pain and hypertension. She overall appears very comfortable. No evidence of preeclampsia. She is given labetalol which does help her blood pressure but it still remains elevated. Dr. Juarez in ED, she is updated patient's symptoms test results agrees that patient needs to go to labor and delivery for further monitoring of blood pressure and an NST. She is aware that ultrasound shows kidney stone which may be hydronephrosis secondary to . Discharge Plan Departure Patient Disposition: Home Clinical Impression: Hypertension
[2023-06-18 16:33] LABS: Add Manual Diff / Slide Review NO; Basophils Absolute Auto 100 /uL (0-100); Basophils Percent Auto 0.5 % (0-2); Eosinophils Absolute Auto 100 /uL (0-450); Eosinophils Percent Auto 0.5 % (2-4); Hematocrit 35.5 % (36-46); Hemoglobin 11.7 g/dL (12.0-16.0); Lymphocytes Absolute Auto 2100 /uL (1100-4500); Lymphocytes Percent Auto 15.6 % (25-40); Mean Corpuscular HGB Conc 32.9 % (30-36); Mean Corpuscular Volume 82.1 fL (80-100); Monocytes Absolute Auto 500 /uL (0-900); Monocytes Percent Auto 3.6 % (3-14); Neutrophils Absolute Auto 10800 /uL (1500-7000); Neutrophils Percent Auto 79.8 % (50-75); Platelet Count 221 X10^3/uL (150-400); Red Blood Cell Count 4.33 X10^6/uL (4.0-5.2); Red Cell Distribution Width 15.4 % (11.6-14.8); White Blood Cell Count 13.5 X10^3/uL (4.5-11.0)
--- NOTE | 2023-06-18 16:41 | DI.US.S_ITS ---
PROCEDURE: US ABDOMEN COMPLETE INDICATIONS: right flank pain, 36 weeks preg TECHNIQUE: Real-time scanning was performed of the abdominal and retroperitoneal organs, with image documentation. COMPARISON: None. FINDINGS: Liver: Liver is normal in size. Liver is mildly increased in echogenicity. Gallbladder: Gallbladder is within normal limits. No gallstones or gallbladder wall thickening. Biliary ducts: Intrahepatic bile ducts are not well seen. Extrahepatic bile duct caliber measures 4.2 mm. Normal is 6-7 mm or less in diameter, or 10 mm or less post-cholecystectomy. Pancreas: Not well seen. Spleen: Spleen is mildly enlarged measuring 13.3 centimeters. Otherwise within normal limits. Kidneys: Kidneys are normal in size and echotexture. Right kidney measures 10.9 cm long; left kidney measures 11.8 cm long. Mild right hydronephrosis. No left hydronephrosis. Nonobstructing calcification within the right Kidney measuring 9 millimeters.. No solid masses. Aorta: Visualized aorta is normal in caliber at less than 3 cm. Distal aorta is not seen. Iliacs: Not seen. IVC: Intrahepatic inferior vena cava is patent. Miscellaneous: No free abdominal fluid. Intrauterine gestation with heart rate measuring 136 beats per minute. IMPRESSION: 1. Mild right hydronephrosis, may be related to gravid uterus. Nonobstructing right renal stone measuring 9 millimeters. 2. Mild hepatic steatosis. Dictated by: Josh Bunch M.D. on 06/18/2023 at 17:49 Approved by: Josh Bunch M.D. on 06/18/2023 at 17:52
[2023-06-18] MEDS: SODIUM CHLORIDE 0.9% 1,000 ML 1000 ML IV (16:44)
[2023-06-18 16:45] LABS: Alanine Aminotransferase 14 IU/L (<35); Albumin 3.5 g/dL (3.5-5.0); Albumin Globulin Ratio 1.1 (1.0-2.8); Alkaline Phosphatase 141 U/L (38-126); Aspartate Aminotransferase 20 IU/L (14-36); BUN Creatinine Ratio 14.1 (6-22); Bilirubin Total 0.5 mg/dL (0.2-1.3); Blood Urea Nitrogen 9 mg/dL (7-17); Calcium 9.4 mg/dL (8.4-10.2); Carbon Dioxide 17 mmol/L (22-32); Chloride 109 mmol/L (98-107); Estimated Glomerular Filt Rate > 60 mL/min (>60); Globulin 3.3 g/dL (1.7-4.1); Glucose 82 mg/dL (70-100); HEMOLYSIS 16 (0-50); Lactate Dehydrogenase 197 U/L (120-246); Potassium 3.9 mmol/L (3.4-5.1); Sodium 134 mmol/L (137-145); Total Protein 6.8 g/dL (6.3-8.2); Uric Acid 4.5 mg/dL (2.5-6.2)
[2023-06-18] MEDS: ONDANSETRON 4 MG/2 ML INJ IV (16:46)
[2023-06-18] MEDS: LABETALOL 20 MG/4 ML SYRINGE 5 MG IV (16:48)
== END 2023-06-18 18:45 | disposition home or self-care (01) ==
LOC: ED 17:39 → OB 06-28 06:38
PROVIDERS: Emergency Medicine; Emergency Provider Obstetrics & Gynecology; PCP Family Medicine; Referring Provider Obstetrics & Gynecology; Visit Provider Obstetrics & Gynecology
DX: O13.3 Gestational [pregnancy-induced] hypertension without significant proteinuria, third trimester (principal); O26.893 Other specified pregnancy related conditions, third trimester; R10.9 Unspecified abdominal pain; Z3A.36 36 weeks gestation of pregnancy
CPT/HCPCS: 36415; 59025; 59050; 76700; 80053; 81003; 81015; 83615; 84550; 85025; 96374; 96375; 99284; G0378; J2405

== ENCOUNTER 2023-06-25 08:30 | Outpatient (CLI) | payer OTHER, MEDICAID, SELFPAY ==
--- NOTE | 2023-06-25 08:54 | P.TNLD_ITS ---
Visit Information Visit Information Date of evaluation: 06/25/23 Primary OB Provider: Lindsey Birmingham On-call OB Provider: Shruthi Silva Reason for Evaluation: Yes non-stress test non-stress test reason: hypertension/pre-eclampsia Vital Signs Vital Signs: Blood pressure 139/70, pulse of 85, temperature 35.9? [facility] Medical History induced hypertension Skin tags, multiple acquired Cervical myofascial strain Foreign body sensation in right ear canal History of UTI Calcium oxalate stones Yeast vaginitis Urinary tract infection Renal calculus, right Leukocytosis Hyperglycemia Leukocytosis Rosacea Chicken pox (~1998) Ovarian cyst (~2012) Human papilloma virus (~2013) Left knee pain Left hand pain Obesity Failure to progress in labor Surgical History Hx of cystoscopy (03/11/21) Anesthesia S/P removal of left ovary (~2012) History of hand surgery (~2006) S/P foot surgery, left (~2003) Status post delivery (05/10/17) Status post primary low transverse section Family History Father Hypertension Mother Hypertension Crohn's disease Alcohol abuse Grandfather Cancer Alcohol abuse Grandfather Cancer Grandmother Lung cancer Alcohol abuse Grandmother No problems noted. Brother Healthy adult Sister Healthy adult Sister Depression Anxiety Family/Other Pacemaker Smoker Hypertension Family/Other Anxiety Depression Family/Other Anencephaly Social History marital status: unmarried,living together number of children: 1 household members: significant other, family and other (parents) lives independently: Yes caregiver/support person: Yes housing: house pets and animals: Yes (2 dogs, 1 cat; pt not managing litter box) education level: high school occupational status: employed (office job) current occupational exposures/hazards: No special carole needs: No travel history: over 6 months ago seatbelt use: always water heater temp set < 120 deg: Yes working smoke detector in home: Yes fire extinguisher in home: Yes carbon monox detector in home: Yes firearms in home: Yes firearms unloaded and locked: Yes do you feel safe at home: Yes Smoking Status: Former smoker second hand exposure: Yes (mother smokes outside, s/o vapes outside) alcohol intake: former (occasionally when not ) substance use type: does not use during the past year weight has: remained stable well-balanced diet: about half the time daily servings fruits/ve-4 caffeine: Yes (black tea) Type(s) of exercise: walking and other (hiking) Evaluation Evaluation Baseline heart rate: 130 Variability: Moderate (11-25) monitor accelerations: Present Monitor Decelerations: Absent Contraction Frequency (minutes): 0 Category of Tracing: Reactive Status: Category l Diagnosis, Plan/Disposition Plan/Disposition Plan: 3 para 1 at 37 weeks 1 day with hypertension here for nonstress test which is reactive. Planned 07/08/2023. Appointment in office today. OB Disposition: home
== END 2023-06-25 09:10 | disposition home or self-care (01) ==
LOC: OB 07-05 10:32
PROVIDERS: PCP Family Medicine; Referring Provider Obstetrics & Gynecology; Visit Provider Obstetrics & Gynecology
DX: O16.3 Unspecified maternal hypertension, third trimester (principal); Z3A.37 37 weeks gestation of pregnancy; Z36.9 Encounter for antenatal screening, unspecified
CPT/HCPCS: 59025; 87653; G0378; G0379

== ENCOUNTER → 2023-06-25 09:27 | Outpatient (CLI) | payer OTHER, MEDICAID, SELFPAY ==
[2023-06-27 13:19] LABS: Strep Grp B PCR NEG for Grp B Strep
== END ==
PROVIDERS: PCP Family Medicine; Visit Provider Specialist
DX: Z34.83 Encounter for supervision of other normal pregnancy, third trimester (principal); Z3A.37 37 weeks gestation of pregnancy
CPT/HCPCS: 87653

== ENCOUNTER 2023-06-29 08:53 | Outpatient (CLI) | payer OTHER, MEDICAID, SELFPAY ==
[2023-06-29 10:08] LABS: Add Manual Diff / Slide Review NO; Basophils Absolute Auto 0 /uL (0-100); Basophils Percent Auto 0.2 % (0-2); Eosinophils Absolute Auto 100 /uL (0-450); Eosinophils Percent Auto 0.6 % (2-4); Hematocrit 33.2 % (36-46); Hemoglobin 11.1 g/dL (12.0-16.0); Lymphocytes Absolute Auto 1900 /uL (1100-4500); Lymphocytes Percent Auto 14.7 % (25-40); Mean Corpuscular HGB Conc 33.3 % (30-36); Mean Corpuscular Volume 81.2 fL (80-100); Monocytes Absolute Auto 600 /uL (0-900); Monocytes Percent Auto 4.9 % (3-14); Neutrophils Absolute Auto 10400 /uL (1500-7000); Neutrophils Percent Auto 79.6 % (50-75); Platelet Count 212 X10^3/uL (150-400); Red Blood Cell Count 4.09 X10^6/uL (4.0-5.2); Red Cell Distribution Width 15.5 % (11.6-14.8); White Blood Cell Count 13.1 X10^3/uL (4.5-11.0)
[2023-06-29 10:33] LABS: Aspartate Aminotransferase 20 IU/L (14-36); BUN Creatinine Ratio 17.6 (6-22); Blood Urea Nitrogen 12 mg/dL (7-17); Estimated Glomerular Filt Rate > 60 mL/min (>60); Uric Acid 4.6 mg/dL (2.5-6.2)
--- NOTE | 2023-06-29 10:48 | P.TNLD_ITS ---
Visit Information Visit Information Date of evaluation: 06/29/23 On-call OB Provider: Anita Hendricks Reason for Evaluation: Yes other Comments/Additional reasons for admission: 32yo at 37+5wks presenting for decreased FM today. She denies headaches, vision changes, RUQ pain, chest pain, or shortness of breath. Vital Signs Vital Signs: BP 126/67, repeat 150/80 HR 85 PFSH Medical History induced hypertension Skin tags, multiple acquired Cervical myofascial strain Foreign body sensation in right ear canal History of UTI Calcium oxalate stones Yeast vaginitis Urinary tract infection Renal calculus, right Leukocytosis Hyperglycemia Leukocytosis Rosacea Chicken pox (~1998) Ovarian cyst (~2012) Human papilloma virus (~2013) Left knee pain Left hand pain Obesity Failure to progress in labor Surgical History Hx of cystoscopy (03/11/21) Anesthesia S/P removal of left ovary (~2012) History of hand surgery (~2006) S/P foot surgery, left (~2003) Status post delivery (05/10/17) Status post primary low transverse section Family History Father Hypertension Mother Hypertension Crohn's disease Alcohol abuse Grandfather Cancer Alcohol abuse Grandfather Cancer Grandmother Lung cancer Alcohol abuse Grandmother No problems noted. Brother Healthy adult Sister Healthy adult Sister Depression Anxiety Family/Other Pacemaker Smoker Hypertension Family/Other Anxiety Depression Family/Other Anencephaly Social History marital status: unmarried,living together number of children: 1 household members: significant other, family and other (parents) lives independently: Yes caregiver/support person: Yes housing: house pets and animals: Yes (2 dogs, 1 cat; pt not managing litter box) education level: high school occupational status: employed (office job) current occupational exposures/hazards: No special carole needs: No travel history: over 6 months ago seatbelt use: always water heater temp set < 120 deg: Yes working smoke detector in home: Yes fire extinguisher in home: Yes carbon monox detector in home: Yes firearms in home: Yes firearms unloaded and locked: Yes do you feel safe at home: Yes Smoking Status: Former smoker second hand exposure: Yes (mother smokes outside, s/o vapes outside) alcohol intake: former (occasionally when not ) substance use type: does not use during the past year weight has: remained stable well-balanced diet: about half the time daily servings fruits/ve-4 caffeine: Yes (black tea) Type(s) of exercise: walking and other (hiking) Objective Labs 06/29/23 10:00 06/29/23 10:00 Labs: Laboratory Results - last 24 hr 06/29/23 10:00 WBC 13.1 H RBC 4.09 Hgb 11.1 L Hct 33.2 L MCV 81.2 MCH 27.0 MCHC 33.3 RDW 15.5 H Plt Count 212 Neut % (Auto) 79.6 H Lymph % (Auto) 14.7 L [place] % (Auto) 4.9 Eos % (Auto) 0.6 L Baso % (Auto) 0.2 Neut # (Auto) 21316 H Lymph # (Auto) 1900 [place] # (Auto) 600 Eos # (Auto) 100 Baso # (Auto) 0 BUN 12 Creatinine 0.68 Estimated GFR > 60 BUN/Creatinine Ratio 17.6 Uric Acid 4.6 AST 20 Evaluation Evaluation Baseline heart rate: 140 Variability: Moderate (11-25) monitor accelerations: Present Monitor Decelerations: Absent Contraction Frequency (minutes): 0 Category of Tracing: Reactive Diagnosis, Plan/Disposition Final Diagnosis (1) Decreased movement: Status: Acute (2) Chronic hypertension affecting : Status: Acute Plan/Disposition Plan: 32yo at 37+5wks presenting for decreased movement today. She denies any symptoms of preeclampsia at this time. Her labs drawn today were within normal limits. Her NST was reactive. -encouraged patient to follow up later this week for her scheduled appointment and repeat NST OB Disposition: home
[2023-06-29 11:20] LABS: Creatinine Urine Random 63.8 mg/dL; Protein (Total) Urine Random 7 mg/dL (0-12)
== END 2023-06-29 10:50 | disposition home or self-care (01) ==
LOC: LABOR 09:06 → OB 07-05 10:33
PROVIDERS: Student in an Organized Health Care Education/Training Program; PCP Family Medicine; Referring Provider Obstetrics & Gynecology; Visit Provider Obstetrics & Gynecology
DX: O10.913 Unspecified pre-existing hypertension complicating pregnancy, third trimester (principal); O36.8130 Decreased fetal movements, third trimester, not applicable or unspecified; Z3A.37 37 weeks gestation of pregnancy; Z36.9 Encounter for antenatal screening, unspecified
CPT/HCPCS: 36415; 59025; 59050; 82570; 84156; 84450; 84550; 85025; G0378; G0379

== ENCOUNTER 2023-07-02 08:53 | Outpatient (CLI) | payer OTHER, MEDICAID, SELFPAY ==
--- NOTE | 2023-07-02 09:41 | P.TNLD_ITS ---
Visit Information Visit Information Date of evaluation: 07/02/23 Primary OB Provider: Shruthi Silva Reason for Evaluation: Yes non-stress test non-stress test reason: hypertension/pre-eclampsia FORMERLY [facility], [facility] Medical History induced hypertension Skin tags, multiple acquired Cervical myofascial strain Foreign body sensation in right ear canal History of UTI Calcium oxalate stones Yeast vaginitis Urinary tract infection Renal calculus, right Leukocytosis Hyperglycemia Leukocytosis Rosacea Chicken pox (~1998) Ovarian cyst (~2012) Human papilloma virus (~2013) Left knee pain Left hand pain Obesity Failure to progress in labor Surgical History Hx of cystoscopy (03/11/21) Anesthesia S/P removal of left ovary (~2012) History of hand surgery (~2006) S/P foot surgery, left (~2003) Status post delivery (05/10/17) Status post primary low transverse section Family History Father Hypertension Mother Hypertension Crohn's disease Alcohol abuse Grandfather Cancer Alcohol abuse Grandfather Cancer Grandmother Lung cancer Alcohol abuse Grandmother No problems noted. Brother Healthy adult Sister Healthy adult Sister Depression Anxiety Family/Other Pacemaker Smoker Hypertension Family/Other Anxiety Depression Family/Other Anencephaly Social History marital status: unmarried,living together number of children: 1 household members: significant other, family and other (parents) lives independently: Yes caregiver/support person: Yes housing: house pets and animals: Yes (2 dogs, 1 cat; pt not managing litter box) education level: high school occupational status: employed (office job) current occupational exposures/hazards: No special carole needs: No travel history: over 6 months ago seatbelt use: always water heater temp set < 120 deg: Yes working smoke detector in home: Yes fire extinguisher in home: Yes carbon monox detector in home: Yes firearms in home: Yes firearms unloaded and locked: Yes do you feel safe at home: Yes Smoking Status: Former smoker second hand exposure: Yes (mother smokes outside, s/o vapes outside) alcohol intake: former (occasionally when not ) substance use type: does not use during the past year weight has: remained stable well-balanced diet: about half the time daily servings fruits/ve-4 caffeine: Yes (black tea) Type(s) of exercise: walking and other (hiking) Evaluation Evaluation Baseline heart rate: 150 Variability: Moderate (11-25) monitor accelerations: Present Monitor Decelerations: Absent Contraction Frequency (minutes): 0 Category of Tracing: Reactive Status: Category l Diagnosis, Plan/Disposition Final Diagnosis (1) Chronic hypertension affecting : Status: Acute Plan/Disposition Plan: Patient is scheduled for in 6 days OB Disposition: home
== END 2023-07-02 09:47 | disposition home or self-care (01) ==
LOC: OB 07-05 10:37
PROVIDERS: PCP Family Medicine; Referring Provider Obstetrics & Gynecology; Visit Provider Obstetrics & Gynecology
DX: O10.919 Unspecified pre-existing hypertension complicating pregnancy, unspecified trimester (principal); Z36.9 Encounter for antenatal screening, unspecified
CPT/HCPCS: 59025; G0378; G0379

== ENCOUNTER 2023-07-08 06:03 | Inpatient (IN) | payer OTHER, MEDICAID, SELFPAY ==
[2023-07-08 06:13] VITALS: BP 131/80
[2023-07-08 07:01] LABS: Add Manual Diff / Slide Review NO; Basophils Absolute Auto 100 /uL (0-100); Basophils Percent Auto 0.5 % (0-2); Eosinophils Absolute Auto 100 /uL (0-450); Eosinophils Percent Auto 0.7 % (2-4); Hematocrit 32.5 % (36-46); Hemoglobin 11.1 g/dL (12.0-16.0); Lymphocytes Absolute Auto 2000 /uL (1100-4500); Lymphocytes Percent Auto 18.9 % (25-40); Mean Corpuscular HGB Conc 34.3 % (30-36); Mean Corpuscular Hemoglobin 27.5 PG (26-34); Mean Corpuscular Volume 80.2 fL (80-100); Monocytes Absolute Auto 500 /uL (0-900); Monocytes Percent Auto 4.5 % (3-14); Neutrophils Absolute Auto 8100 /uL (1500-7000); Neutrophils Percent Auto 75.4 % (50-75); Platelet Count 233 X10^3/uL (150-400); Red Blood Cell Count 4.05 X10^6/uL (4.0-5.2); Red Cell Distribution Width 15.4 % (11.6-14.8); White Blood Cell Count 10.8 X10^3/uL (4.5-11.0)
--- NOTE | 2023-07-08 07:20 | SUR.OPER ---
Supine on padded OR bed, head on pillow, arms secured on padded arm boards at <90 degrees abduction, legs uncrossed, safety belt at thigh, tape over blanket over lower legs. BUMP UNDER PATIENTS RIGHT HIP
--- NOTE | 2023-07-08 07:47 | P.HPOB_ITS ---
OB HPI Date/Time Date of admission: 07/08/23 Date Patient Seen: 07/08/23 Time Patient Seen: 07:47 History of Present Condition Chief complaint: INPT C SECTION CANDE Calculator 2 Estimated Delivery Date Method Current WG Current Estimate 07/15/23 LMP (Certain) 39w 0d : 3 Para: 1 care: good care, initiated at week # (8), number of visits (11) and pounds weight gain (1) Dating criteria OB: LMP confirmed by 1st trimester US Ultrasounds: normal 1st trimester US and normal mid trimester US Obstetrical complications: gestational hypertension Medical complications OB: none Indications Indication for induction OB: gestational HTN/pre-eclampsia Operative indications ( section): previous uterine surgery Preadmission Labs Last OB Lab Results: 2 Blood Type B Positive 07/08/23 06:30 Antibody Screen Negative 07/08/23 06:30 Hematocrit 32.5 % (36-46) L 07/08/23 06:30 Hemoglobin 11.1 g/dL (12.0-16.0) L 07/08/23 06:30 Hepatitis B Surface Antigen Negative s/c (NEGATIVE) 11/28/22 10 :42 Hepatitis C Antibody Negative s/c (NEGATIVE) 11/28/22 10:42 Rubella Antibody 32.0 IU/mL (>15) 11/28/22 10:42 Varicella-Zoster IgG Antibody 1140 index (Immune >165) 11/28/22 10:42 Glucose 1 Hour 131 mg/dL (76-139) 04/02/23 14:21 Group B Streptococcus (PCR) Neg for grp b strep 06/25/23 09:27 -: Chlamydia screen: negative, Gonorrhea screen: negative and Urine: negative -: PAP smear: Normal Genetic Screens: Quad screen: Normal External Labs -: Urine: negative Prior (ies) Past Pregnancies Del. Date GA/Weeks Labor Lgth Wt Sex Route Outcome Anesthesia Place Delv Breastfeed Preg Comp Name 12/20/13 11 spontaneous 05/11/17 38+ 12 7 lb 4 oz Female live - full term IH 1 year induced hyper- Deepthi Delivery Date: 12/20/13 Last Updated by: Heidi Silverman RN stopped developing ~11wk, didn't pass until ~13+ wk. Passed spontaneously, no complications Evaluation Evaluation Baseline heart rate: 135 Variability: Moderate (11-25) monitor accelerations: Present Monitor Decelerations: Absent PFS Medical History induced hypertension Skin tags, multiple acquired Cervical myofascial strain Foreign body sensation in right ear canal History of UTI Calcium oxalate stones Yeast vaginitis Urinary tract infection Renal calculus, right Leukocytosis Hyperglycemia Leukocytosis Rosacea Chicken pox (~1998) Ovarian cyst (~2012) Human papilloma virus (~2013) Left knee pain Left hand pain Obesity Failure to progress in labor Surgical History Hx of cystoscopy (03/11/21) Anesthesia S/P removal of left ovary (~2012) History of hand surgery (~2006) S/P foot surgery, left (~2003) Status post delivery (05/10/17) Status post primary low transverse section Family History Father Hypertension Mother Hypertension Crohn's disease Alcohol abuse Grandfather Cancer Alcohol abuse Grandfather Cancer Grandmother Lung cancer Alcohol abuse Grandmother No problems noted. Brother Healthy adult Sister Healthy adult Sister Depression Anxiety Family/Other Pacemaker Smoker Hypertension Family/Other Anxiety Depression Family/Other Anencephaly Social History marital status: unmarried,living together number of children: 1 household members: significant other, family and other (parents) lives independently: Yes caregiver/support person: Yes housing: house pets and animals: Yes (2 dogs, 1 cat; pt not managing litter box) education level: high school occupational status: employed (office job) current occupational exposures/hazards: No special carole needs: No travel history: over 6 months ago seatbelt use: always water heater temp set < 120 deg: Yes working smoke detector in home: Yes fire extinguisher in home: Yes carbon monox detector in home: Yes firearms in home: Yes firearms unloaded and locked: Yes do you feel safe at home: Yes Smoking Status: Former smoker second hand exposure: Yes (mother smokes outside, s/o vapes outside) alcohol intake: former (occasionally when not ) substance use type: does not use during the past year weight has: remained stable well-balanced diet: about half the time daily servings fruits/ve-4 caffeine: Yes (black tea) Type(s) of exercise: walking and other (hiking) Meds Home Medications and Allergies Home Medications Medication Instructions Recorded Confirmed Type folic acid 400 mcg tablet 0.4 mg PO DAILY 11/25/22 07/02/23 History vitamin-ferrous sulfate tab PO 11/25/22 07/02/23 History 27 mg iron-folic acid 0.8 mg tablet pantoprazole 40 mg tablet,delayed 40 mg PO DAILY for heartburn #90 03/11/23 07/02/23 Rx release tabs labetalol 200 mg tablet 200 mg PO BID #60 tabs 05/05/23 07/02/23 Rx ondansetron 4 mg disintegrating 4 mg PO Q6H PRN nausea and 05/10/23 07/02/23 Rx tablet vomiting in #20 tabs Allergies Allergy/AdvReac Type Severity Reaction Status Date / Time No Known Drug Allergies Allergy Verified 07/02/23 08:21 OB Exam Narrative Exam Narrative: HEENT: No thyromegaly, no anterior cervical or supraclavicular lymphadenopathy. Lungs:Clear to auscultation bilaterally, no wheezes. Cardiovascular: Regular rate and rhythm, no murmurs, rubs, or gallops. Abdomen: Well healed Pfannenstiel scar. No hepatosplenomegaly. No masses palpable Ext: 1+ edema Objective Labs 07/08/23 06:30 Labs: Laboratory Results - last 24 hr 07/08/23 06:30 WBC 10.8 RBC 4.05 Hgb 11.1 L Hct 32.5 L MCV 80.2 MCH 27.5 MCHC 34.3 RDW 15.4 H Plt Count 233 Neut % (Auto) 75.4 H Lymph % (Auto) 18.9 L [place] % (Auto) 4.5 Eos % (Auto) 0.7 L Baso % (Auto) 0.5 Neut # (Auto) 8100 H Lymph # (Auto) 2000 [place] # (Auto) 500 Eos # (Auto) 100 Baso # (Auto) 100 Blood Type B Positive Antibody Screen Negative Assessment and Plan Assessment and Plan Assessment and Plan narrative: Assessment: 32 year old at 39 weeks gestation Previous C section Plan: Repeat C section Time Spent with Patient Total time spent with greater than 50% in coordination of care (as documented) at patient's floor/unit and/or counseling patient:: less than 15 minutes
--- NOTE | 2023-07-08 07:58 | PM.PREOP ---
Pre-operative Note Interval Note History & Physical reviewed/Exam performed by Physician: Yes Changes to H&P: No H&P completed within 30 days and has changed as indicated here:: 07/08/23
[2023-07-08] MEDS: CEFAZOLIN 2 GM/100 ML PREMIX 100 ML IV (08:00)
[2023-07-08] MEDS: CEFAZOLIN VIAL 1 GM in SODIUM CHLORIDE 0.9% 100 ML IV (08:00)
[2023-07-08] MEDS: ACETAMINOPHEN IV 1,000 MG/100 ML VIAL 400 MG IV (08:13)
[2023-07-08 09:15] VITALS: BP 134/69; PULSE 75; RESP 16; TEMP 36.2; O2SAT 98
[2023-07-08 09:20] VITALS: BP 147/59; PULSE 76; RESP 16; O2SAT 98
[2023-07-08] MEDS: OXYCODONE IR 5 MG TABLET PO ×3 (09:22→20:05)
[2023-07-08 09:25] VITALS: BP 135/75; PULSE 77; RESP 16; TEMP 36.8; O2SAT 98
--- NOTE | 2023-07-08 09:34 | P.OP_ITS ---
Operative Date/Time/Diagnoses Date of procedure: 07/08/23 Time of procedure: 09:34 Pre-op diagnosis: 39 weeks gestation Previous C section Post-op diagnosis: same Procedure & Clinicians Procedure: Repeat Low transverse C section Same procedure as scheduled: Yes Indications: 32-year-old 2 para 1 at 39 weeks gestation with a prior section. complicated by hypertension. On labetalol 200 mg twice a day. She presents today for repeat low-transverse section. Surgeon: Lindsey Birmingham Click Yes if Unassisted: No Guest Service Agent: Shruthi Silva Anesthesia Type: Spinal (with Duramorph) Operative Notes Findings: Live female in the direct OP presentation Normal uterus, right tube and ovary Closure Type: primary Specimen(s): cord blood and placenta Intraoperative meds administered: Duramorph, Ketorolac and Pitocin Applied: Catheter (to continuous drainage) Estimated Blood Loss (mL): 400 Blood products transfused: none Procedure in detail: The patient was taken to the operating room where she was placed in the seated position. Spinal anesthesia with Duramorph was administered. She was placed in the dorsal supine position with a leftward tilt, and prepped and draped using the Traxi in the usual sterile fashion. A time-out was performed. Spinal anesthesia was found to be adequate. A Pfannenstiel skin incision was made through the previous incision and carried through to the underlying layer of fascia. The fascia was nicked in the midline and the incision was extended bilaterally with the Eldridge scissors. The superior aspect of the fascial incision was grasped with the Lottie clamps, elevated, and the underlying rectus muscles dissected off sharply and bluntly. Attention was then turned to the inferior aspect of this incision which in a similar fashion was grasped with the Lottie clamps, elevated, and the underlying rectus muscles dissected off sharply and bluntly. The rectus muscles were in the midline. The peritoneum was identified, grasped between 2 hemostats, and entered sharply with the Metzenbaum scissors. This incision was extended superiorly and inferiorly with good visualization of the bladder. The bladder blade was inserted. The vesicouterine peritoneum was grasped with a pickup, and entered sharply with the Metzenbaum scissors. This incision was extended bilaterally, and the bladder flap created digitally. The bladder blade was reinserted. The lower uterine segment is incised in a transverse fashion with the scalpel. Upon entering the amniotic sac there was copious clear amniotic fluid. The incision was extended bluntly. The infant was found to be in the direct occiput posterior presentation. The infant head was delivered without difficulty. The nose and mouth were suctioned with bulb suction. The remainder of the body delivered without difficulty and was wrapped in a warm blanket. The cord was double clamped and cut after 1 minute. Cord bloods were obtained. The placenta was delivered by expression. The uterus was cleared of all clots and debris. The uterine incision was closed with 1. Chromic in a running interlocking fashion. A second layer of the same suture was used for an imbricating layer. Hemostasis was achieved. The tubes and ovaries were examined and were found to be normal. The gutters were cleared of all clots and debris. A bladder flap was closed using 2-0 Vicryl in a running fashion. The parietal peritoneum was closed using 2-0 Vicryl in a running fashion. The fascia was closed using 0 Vicryl with a running suture. The subcutaneous layer was copiously irrigated with warm normal saline. Two layers of 3-0 Vicryl were placed to reapproximate the subcutaneous layer. The skin was closed with 4-0 Monocryl in a subcuticular fashion. Steri- Strips and an Aquacel dressing were placed. The uterus was expressed of a small amount of old blood. The uterus was marked 2 fingerbreadths below the umbilicus. Sponge, lap, and instrument counts were correct x2. The patient tolerated the procedure well, and was taken to PACU in stable condition. Complications: none Baby 1: Infant Gender: Female Presentation: vertex Position: Occiput Posterior Placental Delivery Description: Expressed Cord Vessel Description: 3 Vessels and Clamped/Cut (after one minute) score (1 min): 9 score (5 min): 9 weight: 7 lb 1 oz Post-operative Condition: stable Disposition: PACU Aftercare: routine postop
[2023-07-08] MEDS: ONDANSETRON 4 MG/2 ML INJ IV (11:36)
[2023-07-08] MEDS: KETOROLAC 30 MG/ML VIAL IV (14:32)
[2023-07-08] MEDS: ACETAMINOPHEN 325 MG TABLET 650 MG PO ×2 (14:32→20:18)
[2023-07-08] MEDS: LABETALOL 100 MG TABLET 200 MG PO (20:17)
[2023-07-09] MEDS: OXYCODONE IR 5 MG TABLET PO ×3 (00:56→18:50)
[2023-07-09] MEDS: ACETAMINOPHEN 325 MG TABLET 650 MG PO ×4 (02:20→21:17)
[2023-07-09] MEDS: KETOROLAC 30 MG/ML VIAL IV ×2 (02:21→09:08)
[2023-07-09 06:14] LABS: Add Manual Diff / Slide Review NO; Basophils Absolute Auto 0 /uL (0-100); Basophils Percent Auto 0.2 % (0-2); Eosinophils Absolute Auto 100 /uL (0-450); Eosinophils Percent Auto 0.8 % (2-4); Hematocrit 29.5 % (36-46); Hemoglobin 9.8 g/dL (12.0-16.0); Lymphocytes Absolute Auto 2500 /uL (1100-4500); Mean Corpuscular HGB Conc 33.2 % (30-36); Mean Corpuscular Hemoglobin 27.2 PG (26-34); Mean Corpuscular Volume 81.8 fL (80-100); Monocytes Absolute Auto 600 /uL (0-900); Monocytes Percent Auto 4.7 % (3-14); Neutrophils Absolute Auto 9800 /uL (1500-7000); Neutrophils Percent Auto 75.3 % (50-75); Platelet Count 182 X10^3/uL (150-400); Red Blood Cell Count 3.61 X10^6/uL (4.0-5.2); Red Cell Distribution Width 15.7 % (11.6-14.8); White Blood Cell Count 13.1 X10^3/uL (4.5-11.0)
--- NOTE | 2023-07-09 07:36 | PM.OBPN.1 ---
Subjective - OB Subjective Patient comments: incisional pain baby status: doing well feeding status: exclusively breast feeding Narrative: Patient is postoperative day 1 repeat section. Date Patient Seen: 07/09/23 Time Patient Seen: 07:37 Interval history: Patient is postoperative day 1 repeat section. She has incisional pain but overall is feeling fine. Breast-feeding without difficulty. She just had her Viera catheter removed. She is passing gas. Exam Vital Signs (past 8 hours): Blood pressure 122/58, pulse 71, temperature 97.6? Oxygen Delivery Method Room Air Narrative Exam Narrative: Patient's abdomen is soft, nontender. Uterus is firm, at U, appropriately tender. Dressing is clean, dry, intact. Extremities with trace edema , left slightly greater than right, and nontender. Objective Labs 07/09/23 05:41 Labs: Laboratory Results - last 24 hr 07/09/23 05:41 WBC 13.1 H RBC 3.61 L Hgb 9.8 L Hct 29.5 L MCV 81.8 MCH 27.2 MCHC 33.2 RDW 15.7 H Plt Count 182 Neut % (Auto) 75.3 H Lymph % (Auto) 19.0 L [place] % (Auto) 4.7 Eos % (Auto) 0.8 L Baso % (Auto) 0.2 Neut # (Auto) 9800 H Lymph # (Auto) 2500 [place] # (Auto) 600 Eos # (Auto) 100 Baso # (Auto) 0 Assessment & Plan Plan day: 1 plan OB: routine postop care Time Spent With Patient Time: Total time spent is greater than 50% in coordination of care (as documented) at patient's floor/unit and/or counseling patient: Time with patient: less than 15 minutes
[2023-07-09 09:05] VITALS: BP 147/81; PULSE 95
[2023-07-09] MEDS: DOCUSATE 100 MG CAPSULE PO (09:05)
[2023-07-09] MEDS: FERROUS SULFATE 325 MG TABLET PO ×2 (09:05→17:10)
[2023-07-09] MEDS: LABETALOL 100 MG TABLET 200 MG PO ×2 (09:05→21:19)
[2023-07-09] MEDS: PRENATAL VIT,CALC/IRON/FOLIC 1 TABLET 1 TAB PO (09:05)
[2023-07-09] MEDS: OXYCODONE IR 10 MG TABLET PO (14:16)
[2023-07-09] MEDS: IBUPROFEN 600 MG TABLET PO ×2 (15:15→21:19)
[2023-07-09 21:19] VITALS: BP 146/76; PULSE 72
[2023-07-10] MEDS: OXYCODONE IR 5 MG TABLET PO ×2 (00:24→06:16)
[2023-07-10] MEDS: ACETAMINOPHEN 325 MG TABLET 650 MG PO ×2 (03:19→08:55)
[2023-07-10] MEDS: IBUPROFEN 600 MG TABLET PO ×2 (03:19→08:55)
--- NOTE | 2023-07-10 08:17 | PM.OBDS.1 ---
Discharge Providers Provider Date of admission: 07/08/23 06:03 Discharge Date: 07/10/23 Primary care physician: Yamil Arias DO Consults: 07/08/23 09:57 Consult to Plant Maintenance Worker Routine Comment: Discharge provider: Shruthi Silva MD Summary Hospital Course Date Patient Seen: 07/10/23 Time Patient Seen: 08:20 Diagnoses: Prior section at 39 weeks Hospital Course: Patient underwent a repeat low-transverse section on 07/08/2023 at 39 weeks. She is breast-feeding without difficulty. Her pain is under control. She is urinating ambulating well. She has mild lochia. She has decreasing edema of her lower extremities. Peripartum Data Infant Delivery Method: Section (Repeat) Procedures: Repeat low-transverse section complications: none 1: Gender: Female Disposition of : home Discharge Diagnosis (1) Acute on chronic blood loss anemia: Status: Acute (2) Chronic hypertension affecting : Status: Acute (3) History of section: Status: Acute (4) 39 weeks gestation of : Status: Acute Status at Discharge Cognitive/behavioral status at discharge: oriented Functional status at discharge: independent ambulation Overall status at discharge: patient is progressing back to baseline Time Spent with Patient Time attestation: Total time spent providing and/or coordinating discharge services: Time spent: Less than 30 minutes Objective Labs 07/09/23 05:41 Exam Vital Signs (past 8 hours): Blood pressure 136/74, pulse 78, temperature 97.4? Oxygen Delivery Method Room Air Narrative Exam Narrative: Abdomen is soft, nontender. Uterus is firm, at U, nontender. Dressing is clean, dry, intact. Mild lochia. Extremities with decreasing edema and nontender. Discharge Plan Discharge Plan Patient Disposition: Home Provider Discharge Comment: also continue labetolol Discharge orders & Medications Prescriptions: New ferrous sulfate 325 mg (65 mg iron) Tablet 325 mg PO BIDWM Qty: 60 0RF ibuprofen 600 mg Tablet 600 mg PO Q6H Qty: 30 0RF oxycodone 5 mg Tablet 5 mg PO Q4H PRN (Reason: Pain, Moderate (4-6)) Qty: 10 0RF Continued pantoprazole 40 mg tablet,delayed release (DR/EC) 40 mg PO DAILY Qty: 90 0RF vit-ferrous sulfat-FA 27 mg iron- 0.8 mg tablet PO Discontinued ondansetron 4 mg tablet,disintegrating 4 mg PO Q6H PRN (Reason: nausea and vomiting in ) Qty: 20 2RF folic acid 400 mcg tablet 0.4 mg PO DAILY Follow up/Referrals: Shruthi Silva MD [Physician] - 07/15/23 11:00 am (Aquacel removal and incision check with Dr. Silva) Lindsey Birmingham MD [Physician] - 08/19/23 11:15 am ([address] Birmingham ) Diet/Activity/Treatments Diet: Regular Activity: Nothing in vagina or lifting over 15 lb for 6 weeks Skin/Wound/Dressing Care Report to your healthcare provider any signs of infection, such as:: chills, fever and increased pain Dressing: Leave dressing on until one-week post op appointment Visit Report/Discharge Packet Instructions: DI for , DI for Prescription Opioid Use Stand Alone Forms: Discharge: Care, Patient Portal/API, Stroke Signs & Symptoms Discharge Data Primary Care Provider: Yamil Arias
[2023-07-10 08:54] VITALS: BP 132/73; PULSE 83
[2023-07-10] MEDS: LABETALOL 100 MG TABLET 200 MG PO (08:54)
[2023-07-10] MEDS: PRENATAL VIT,CALC/IRON/FOLIC 1 TABLET 1 TAB PO (08:55)
[2023-07-10] MEDS: FERROUS SULFATE 325 MG TABLET PO (08:56)
[2023-07-10 09:26] VITALS: BP 132/73; PULSE 83; RESP 16; TEMP 36.8
== END 2023-07-10 12:00 | disposition home or self-care (01) | DRG 540 ==
PROVIDERS: Obstetrics & Gynecology; Admitting Provider Specialist; PCP Family Medicine; Referring Provider Specialist; Visit Provider Specialist
PROC: 10D00Z1 Extraction of Products of Conception, Low, Open Approach (ICD-10-PCS; CPT 59514; principal; 2023-07-08 07:45)
DX: O34.211 Maternal care for low transverse scar from previous cesarean delivery (principal); Z3A.39 39 weeks gestation of pregnancy; Z37.0 Single live birth; O13.4 Gestational [pregnancy-induced] hypertension without significant proteinuria, complicating childbirth
CPT/HCPCS: 36415; 59050; 59514; 85025; 86850; 86900; 86901; J0136; J0690; J1885; J2274; J2405; J2704; J3010

== ENCOUNTER → 2023-11-10 12:07 | Outpatient (CLI) | payer OTHER, MEDICAID, SELFPAY ==
[2023-11-10 13:39] LABS: Influenza A - CEPHEID Flu A NEGATIVE (NEGATIVE); Influenza B - CEPHEID Flu B NEGATIVE (NEGATIVE); Respiratory Syncytial Virus Negative (Negative)
[2023-11-10 13:40] LABS: COVID-19 CEPHEID 4-PLEX PCR Negative (Negative)
== END ==
PROVIDERS: PCP Family Medicine; Visit Provider Physician Assistant Surgical
DX: R05.1 Acute cough (principal)
CPT/HCPCS: 87635; 87400 ×2; 87420; 0241U

== ENCOUNTER → 2024-12-11 17:34 | Outpatient (CLI) | payer OTHER, SELFPAY ==
[2024-12-11 18:20] LABS: Appearance Urine UA CLEAR; Bilirubin Urine UA NEGATIVE (NEGATIVE); Color Urine UA YELLOW; Glucose Urine UA NEGATIVE (Negative); Ketones Urine UA NEGATIVE (NEGATIVE); Leukocyte Esterase Urine UA TRACE (NEGATIVE); Nitrite Urine UA POSITIVE (Negative); Occult Blood Urine UA 1+ (Negative); Protein Urine UA NEGATIVE (Negative); Specific Gravity Urine UA 1.015 (1.000-1.035); Urobilinogen Urine UA 0.2 E.U./dL (0.2)
[2024-12-11 18:24] LABS: pH Urine UA 5.5 (4.5-8.0)
[2024-12-11 18:27] LABS: Culture Indicated Urine Specimen Cultured
== END ==
PROVIDERS: PCP Family Medicine; Referring Provider Obstetrics & Gynecology; Visit Provider Obstetrics & Gynecology
DX: R30.0 Dysuria (principal)
CPT/HCPCS: 81001; 87077; 87086; 87186

== ENCOUNTER → 2025-01-12 16:37 | Outpatient (CLI) | payer OTHER, SELFPAY ==
[2025-01-12 17:42] LABS: Natera Collection Specimen Collected
== END ==
PROVIDERS: PCP Family Medicine; Referring Provider Internal Medicine Endocrinology, Diabetes & Metabolism; Visit Provider Obstetrics & Gynecology
DX: Z34.82 Encounter for supervision of other normal pregnancy, second trimester (principal)
CPT/HCPCS: 36415

== ENCOUNTER → 2025-02-09 06:28 | Outpatient (CLI) | payer OTHER, SELFPAY ==
--- NOTE | 2025-02-09 06:29 | DI.US.S_ITS ---
PROCEDURE: US OB >= 14 WEEKS FETUS INDICATIONS: anatomy scan OUTSIDE/PRIOR DATING DATA: Working CANDE is 07/03/2025 TECHNIQUE: Real-time scanning was performed of the fetus, with image documentation and biometric measurements. COMPARISON: [facility], , US OB >= 14 WEEKS FETUS, 11/13/2024, 16:11. [facility], , US OB <= 14 WEEKS FETUS, 12/15/2024, 16:21. FINDINGS: General: A single living intrauterine gestation is present. Presentation: Transverse. Placenta: Placental position is fundal , without previa. Amniotic fluid index: 10.6 cm, normal range is 5-24 cm. Single deepest vertical pocket is 3 cm. heart rate: 165 beats per minute. Maternal cervical canal: 4 cm long. Normal lower limit is 2.5 cm. biometrics: Biparietal diameter: 4.4 cm 19 weeks and 2 days Head circumference: 16.8 cm, 19 weeks and 3 days Abdominal circumference: 14.2 cm, 19 weeks and 4 days Femur length: 3.1 cm, 19 weeks and 3 days Clinically estimated gestational age: 19 weeks Composite gestational age from present scan: 19 weeks and 3 days Estimated weight and percentile: 297 g, 76% Anatomic survey: Neuro: Ventricles are non-dilated at less than 10 mm. Cisterna magna is normal at 3-11 mm. Cerebellum is normal in size and morphology. Nuchal skin fold: Normal at less than 6 mm between 14-21 weeks gestational age. Face: Not well seen Spine: Poorly seen Heart: Not well seen Diaphragm: Diaphragm is intact. Stomach: Left-sided stomach is present. Kidneys: No hydronephrosis. Normal is less than 5 mm in 2nd trimester, less than 7 mm in 3rd trimester. Cord: 3-vessel cord has orthotopic insertion. Bladder: Normal in size. Extremities: All 4 extremities identified. IMPRESSION: Intrauterine gestation with cardiac motion in transverse presentation. Normal [place]. EFW at the 76 percentile, within normal limits. Due to poor sonographic windows, multiple anatomic structures were not well seen including the facial structures, spine, and heart. Short interval follow-up recommended. Dictated by: Bridger Colvin M.D. on 02/10/2025 at 11:24 Approved by: Bridger Colvin M.D. on 02/10/2025 at 11:27
== END ==
LOC: US 06:28
PROVIDERS: PCP Family Medicine; Referring Provider Obstetrics & Gynecology; Visit Provider Obstetrics & Gynecology
DX: O09.892 Supervision of other high risk pregnancies, second trimester (principal); Z3A.19 19 weeks gestation of pregnancy
CPT/HCPCS: 76811

== ENCOUNTER → 2025-02-09 08:32 | Outpatient (CLI) | payer OTHER, SELFPAY | PROVIDERS: PCP Family Medicine; Visit Provider Obstetrics & Gynecology | DX: Z13.0 Encounter for screening for diseases of the blood and blood-forming organs and certain disorders involving the immune mechanism (principal); Z13.1 Encounter for screening for diabetes mellitus ==

== ENCOUNTER → 2025-02-23 07:10 | Outpatient (CLI) | payer OTHER, SELFPAY ==
--- NOTE | 2025-02-23 07:12 | DI.US.S_ITS ---
PROCEDURE: US OB FOLLOW UP INDICATIONS: complete cardiac views OUTSIDE/PRIOR DATING DATA: Last menstrual period (LMP): 09/29/2024. LMP-based estimated date of delivery (CANDE): 07/06/2025. First dating scan (date and location): Not applicable. Estimated date of delivery (CANDE) from first dating scan: Not have a. The calculations are made using the clinical CANDE of 07/06/2025. TECHNIQUE: Real-time scanning was performed of the fetus, with image documentation and biometric measurements. Endovaginal scanning: Not performed COMPARISON: [facility], OB FOLLOW UP, 03/05/2023, 13:03. FINDINGS: General: A single living intrauterine gestation is present. Presentation: Breech. Placenta: Placental position is anterior , without previa. Amniotic fluid index: 12.8 cm, normal range is 5-24 cm. Single deepest vertical pocket is 3.9 cm. heart rate: 144 beats per minute. Maternal cervical canal: 4.2 cm long. Normal lower limit is 2.5 cm. Other: spine on today's examination unremarkable. Again the heart is poorly visualized. IMPRESSION: Single living intrauterine . Again heart not well visualized. We strive to produce accurate, complete, and clear reports of imaging services. To assist us in improving patient care, this report was composed using standard report templates and voice recognition software. Therefore, it may contain abnormal punctuation, insertions and/or omissions. Occasional wrong-word or sound-alike substitutions may occur. Though we review the report and make efforts to correct it, we do recommend that the report be read carefully in proper context to recognize any text inaccuracies. Dictated by: Huang Carrasquillo M.D. on 02/23/2025 at 10:36 Approved by: Huang Carrasquillo M.D. on 02/23/2025 at 10:41
[2025-02-23 08:36] LABS: Hematocrit 36.8 % (36-46); Hemoglobin 12.4 g/dL (12.0-16.0)
[2025-02-27 17:36] LABS: Gest Age on Col Date 19.0 weeks (.); OSBR Risk 1IN 2100 (.)
== END ==
LOC: US 07:11
PROVIDERS: PCP Family Medicine; Referring Provider Obstetrics & Gynecology; Visit Provider Obstetrics & Gynecology
DX: Z36.0 Encounter for antenatal screening for chromosomal anomalies (principal); O09.899 Supervision of other high risk pregnancies, unspecified trimester; O10.019 Pre-existing essential hypertension complicating pregnancy, unspecified trimester; Z13.0 Encounter for screening for diseases of the blood and blood-forming organs and certain disorders involving the immune mechanism; Z13.1 Encounter for screening for diabetes mellitus
CPT/HCPCS: 36415; 76816; 82105; 85014; 85018